=== PATIENT | female | born 1995 | race Caucasian/White ===

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

== ENCOUNTER 2019-02-06 20:05 | Inpatient (IN) | payer BC ==
[~2019-02-06] VITALS: Ht 172.7 cm; Wt 58.0 kg
--- OUTSIDE RECORDS SUMMARY | ~2019-02-06 | XMS | Encounter Summary ---
Demographics + + + | Address | [address] | | | [place] [address] | + + + | Home Phone | | + + + | Preferred Language | Unknown | + + + | Marital Status | | + + + | Orthodoxy Affiliation | 1027 | + + + | Race | Unknown | + + + | Ethnic Group | Unknown | + + + Author + + + | Author | [facility] | | | and [place] | + + + | Organization | [facility] | | | and [place] | + + + | Address | Unknown | + + + | Phone | Unavailable | + + + Support + + +---------+ + | Name | Relationship | Address | Phone | + + +---------+ + | Simeonu Corpus | ECON | Unknown | | + + +---------+ + | Rozina Chang ECON | Unknown | | + + +---------+ + Care Team Providers + +------+ + | Care Mastercam Programmer Name | Role | Phone | + +------+ + | Yousif Sebastian | PCP | | + +------+ + Encounter Details +--------+ + + + + | Date | Type | Department | Care Team | Description | +--------+ + + + + | 03/02/ | Episode | [facility] | Leah Carey | | | 2017 | Changes | GASTROENTEROLOGY | M, RN | | | | | [address] | | | | | | [address] [place] | | | | | | [address] | | | | | | [phone] | | | +--------+ + + + + Social History + +-------+ +--------+------+ | Tobacco Use | Types | Packs/Day | Years | Date | | | | | Used | | + +-------+ +--------+------+ | Never Smoker | | | | | + +-------+ +--------+------+ + +---+---+---+ | Smokeless Tobacco: | | | | | Never Used | | | | + +---+---+---+ + + +---------+ + | Alcohol Use | Drinks/Week | oz/Week | Comments | + + +---------+ + | No | | | | + + +---------+ + + + + | Sex Assigned at | Date Recorded | | | | + + + | Not on file | | + + + + + + + | Job Start Date | Occupation | Industry | + + + + | Not on file | Not on file | Not on file | + + + + + + + + | Travel History | Travel Start | Travel End | + + + + + + | No recent travel history available. | + + documented as of this encounter Plan of Treatment Not on filedocumented as of this encounter Visit Diagnoses Not on filedocumented in this encounter"
--- OUTSIDE RECORDS SUMMARY | ~2019-02-06 | XMS | Encounter Summary ---
Demographics + + + | Address | [address] | | | [place] [address] | + + + | Home Phone | | + + + | Preferred Language | Unknown | + + + | Marital Status | | + + + | Restoration Affiliation | 1027 | + + + | Race | Unknown | + + + | Ethnic Group | Unknown | + + + Author + + + | Author | [facility] | | | and [place] | + + + | Organization | [facility] | | | and [place] | + + + | Address | Unknown | + + + | Phone | Unavailable | + + + Support + + +---------+ + | Name | Relationship | Address | Phone | + + +---------+ + | Simeonu Corpus | ECON | Unknown | | + + +---------+ + | Rozina Bergeron | ECON | Unknown | | + + +---------+ + Care Team Providers + +------+ + | Care Primary Education Professor Name | Role | Phone | + +------+ + | Yousif Sebastian | PCP | | + +------+ + Reason for Visit + + + | Reason | Comments | + + + | Medication Prior | | | Authorization | | + + + Encounter Details +--------+ + + + + | Date | Type | Department | Care Team | Description | +--------+ + + + + | 04/12/ | Telephone | [facility] [place] | [facility], | Medication Prior | | 2019 | | GASTROENTEROLOGY | ABHIJEET Hernandez [address] | Authorization | | | | [address] | [place], [address] | | | | | [address] [place], [place] | [place], [place] | | | | | [address] | [address] | | | | | [phone] | | | +--------+ + + + [...]
--- OUTSIDE RECORDS SUMMARY | ~2019-02-06 | XMS | Encounter Summary ---
Demographics + + + | Address | [address] | | | [place] [address] | + + + | Home Phone | | + + + | Preferred Language | Unknown | + + + | Marital Status | | + + + | Yarsanism Affiliation | 1027 | + + + | Race | Unknown | + + + | Ethnic Group | Unknown | + + + Author + + + | Author | [facility] | | | and [place] | + + + | Organization | [facility] | | | [...] Team Providers + +------+ + | Care Box Maker Name | Role | Phone | + +------+ + | Yousif Sebastian | PCP | | + +------+ + Reason for Visit + + + | Reason | Comments | + + + | Imaging Only | CT | + + + Encounter Details +--------+ + + + + | Date | Type | Department | Care Team | Description | +--------+ + + + + | 03/06/ | Telephone | [facility] | [facility], | Imaging Only (CT) | | 2018 | | GASTROENTEROLOGY | ABHIJEET Hernandez [address] | | | | | [address] | [place], [address] | | | | | [address] [place], [place] | [place], [place] | | | | | [address] | [address] | | | | | [phone] | | | +--------+ + + + [...]
--- OUTSIDE RECORDS SUMMARY | ~2019-02-06 | XMS | Encounter Summary ---
Demographics + + + | Address | [address] | | | [place] [address] | + + + | Home Phone | | + + + | Preferred Language | Unknown | + + + | Marital Status | | + + + | Confucianism Affiliation | 1027 | + + + | Race | Unknown | + + + | Ethnic Group | Unknown | + + + Author + + + | Author | [facility] | | | and [place] | + + + | Organization | [facility] | | | [...] Team Providers + +------+ + | Care Garage Door Service Technician Name | Role | Phone | + +------+ + | Yousif Sebastian | PCP | | + +------+ + Encounter Details +--------+ + + + + | Date | Type | Department | Care Team | Description | +--------+ + + + + | 03/23/ | Abstract | [facility] [place] | Provider, | | | 2019 | | GASTROENTEROLOGY | MD Jerilyn [address] | | | | | [address] [facility] | Silvia Spence | | | | | [address] [place] | [place] [address] | | | | | [address] | | | | | | [phone] | | | +--------+ + + + [...] Not on filedocumented as of this encounter Procedures + +--------+ + + + | Procedure Name | Priori | Date/Time | Associated Diagnosis | Comments | | | ty | | | | + +--------+ + + + | EXTERNAL: | Routin | 03/15/2018 | | Results for this | | COLONOSCOPY | e | | | procedure are in the | | | | | | results section. | + +--------+ + + + documented in this encounter Results EXTERNAL: COLONOSCOPY (03/15/2018) + + + + + + | Component | Value | Ref Range | Performed | Pathologist | | | | | At | Signature | + + + + + + | Colonoscopy | Impression: Redundant | | | | | | colon. Tortuous colon. | | | | | Impression, | The entire examined | | | | | External | colon is normal. | | | | | | Biopsied. The | | | | | | examination was | | | | | | otherwise normal. The | | | | | | distal rectum and anal | | | | | | verge are normal on | | | | | | retroflexion view.~ [facility] | | | | | | Dr. Sanchez | | | | + + + + + + documented in this encounter Visit Diagnoses Not on filedocumented in this encounter"
--- OUTSIDE RECORDS SUMMARY | ~2019-02-06 | XMS | Encounter Summary ---
Demographics + + + | Address | [address] | | | [place] [address] | + + + | Home Phone | | + + + | Preferred Language | Unknown | + + + | Marital Status | | + + + | Gnosticism Affiliation | 1027 | + + + | Race | Unknown | + + + | Ethnic Group | Unknown | + + + Author + + + | Author | [facility] | | | and [place] | + + + | Organization | [facility] | | | and [...] Team Providers + +------+ + | Care Cold Storage Worker Name | Role | Phone | + +------+ + | Yousif Sebastian | PCP | | + +------+ + Reason for Referral Diagnostic/Screening (Routine) +--------+--------+ + + + + | Status | Reason | Specialty | Diagnoses / | Referred By | Referred To | | | | | Procedures | Contact | Contact | +--------+--------+ + + + + | Closed | | Radiology | Diagnoses | | OP GOOD | | | | | Weight | [place], | VALDEZ | | | | | loss, | Mary, | MEDICAL | | | | | unintentiona | [employer] [address] | | | | | l Diarrhea, | [place], [place] | [address] | | | | | unspecified | [address] [place] | [place], [place] | | | | | type | [place], [place] | [address] | | | | | Abdominal | [address] | Phone: | | | | | cramping | Phone: | [phone] | | | | | Procedures | [phone] | Fax: | | | | | CT Abdomen | Fax: | [phone] | | | | | Pelvis w | [phone] | | | | | | Contrast | | | | | | | CHG CT | | | | | | | SCAN,ABDOMEN | | | | | | | T AND | | | | | | | PELVIS,W | | | | | | | CONTRAST | | | +--------+--------+ + + + + Reason for Visit + + + | Reason | Comments | + + + | Abdominal Pain | | + + + Evaluate & Treat (Urgent) +--------+--------+ + + + + | Status | Reason | Specialty | Diagnoses / | Referred By | Referred To | | | | | Procedures | Contact | Contact | +--------+--------+ + + + + | Closed | | Gastroenterol | Diagnoses | [place], | Har[place], | | | | ogy | Lower | Yousif | Soham Stratton MD | | | | | abdominal | RYAN Chin | [address], | | | | | pain, | [address] | [address] | | | | | unspecified | [address] | [place], | | | | | | [place] | [place] [address] | | | | | Noninfective | [address] | Phone: | | | | | | Phone: | [phone] | | | | | gastroenteri | [phone] | Fax: | | | | | tis and | Fax: | [phone] | | | | | colitis, | [phone] | | | | | | unspecified | | | | | | | Abnormal | | | | | | | weight loss | | | | | | | Procedures | | | | | | | OFFICE | | | | | | | VISIT | | | +--------+--------+ + + + + Encounter Details +--------+---------+ + + + | Date | Type | Department | Care Team | Description | +--------+---------+ + + + | 03/02/ | Office | [facility] [place] | [place], | Weight loss, | | 2017 | Visit | GASTROENTEROLOGY | ABHIJEET Hernandez [address] | unintentional | | | | [address] | [place], [address] | (Primary Dx); | | | | [address] [place], [place] | [place], [place] | Diarrhea, | | | | [address] | [address] | unspecified type; | | | | [phone] | | Abdominal pain, | | | | | | unspecified | | | | | | abdominal location | +--------+---------+ + + + Social History + +-------+ [...] + + documented as of this encounter Last Filed Vital Signs + + + + + | Vital Sign | Reading | Time Taken | Comments | + + + + + | Blood Pressure | 100/68 | 03/02/2018 11:07 AM | | | | | PST | | + + + + + | Pulse | 65 | 03/02/2018 11:07 AM | | | | | PST | | + + + + + | Temperature | 37.1 C (98.8 F) | 03/02/2018 11:07 AM | | | | | PST | | + + + + + | Respiratory Rate | 12 | 03/02/2018 11:07 AM | | | | | PST | | + + + + + | Oxygen Saturation | 99% | 03/02/2018 11:07 AM | | | | | PST | | + + + + + | Inhaled Oxygen | - | - | | | Concentration | | | | + + + + + | Weight | 45.5 kg (100 lb 5 | 03/02/2018 11:07 AM | | | | oz) | PST | | + + + + + | Height | 172.7 cm (5' 8") | 03/02/2018 11:07 AM | | | | | PST | | + + + + + | Body Mass Index | 15.25 | 03/02/2018 11:07 AM | | | | | PST | | + + + + + documented in this encounter Progress Notes Mary Ma ARNP - 03/02/2018 11:00 AM PSTFormatting of this note might be differe nt from the original. PATIENT NAME: Nicky Fine : 1995: AGE: 23 y.o. REFERRED BY: Yousif Sebastian PRIMARY CARE: RYAN Sequeira Subjective: CHIEF COMPLAINT: Nicky Fine is a 23 y.o. female referred by RYAN Sequeira for evaluation and treatment of weight loss and diarrhea HISTORY OF PRESENT ILLNESS: Patient notes that she has had stomach issues for about 6-7 years. She reports that she will eat and about 20-30 min later, she will have diarrhea. She can robb ve 2-5 BM per day. Diarrhea comes most days. She states that one day per week, she will have a good day and be able to eat without issue s. [place] and dairy seem to be worse for the pain and diarrhea. Pain is in mid/upper abdomen. She describes pain as intense cramping. Sometimes the intensity is worse. The cramping is co nstant for about 3 hours. It may or may not improve with bowel movement. Increased activity can worsen the pain too. Prior to her , she weighed about 115. She gave 11/2016 and weighed about 121 lbs. She reports that a short time after childbirth and nursing, she dropped to 90 lbs. She had to stop nursing due to weight loss. She feels like she had more constipation with pregna ncy. She admits to eating plenty of foods. Denies eating disorder. LMP was 03/16/2017. She is not using control. She is sexually active. She was tested fo r or spontaneous at [facility]. She reports that HCG levels were negative. She thinks her brother may have psoriasis, but no official autoimmune personal or family hi story. Denies rashes, mouth sores or joint pains. She has had black stools following Pepto Bismol. Denies bright red blood per rectum. She has had nocturnal bowel movements. She reports that she went to [facility] during one of her bad days. She was vomiting that day, which does not happen often. The following day, she had black stools. She was then seen in E D at [facility]. She was given "antacids and a coating medication" that did not help pain. She r eports that the only reason she went to ED was because her in laws highly encouraged her to go. Previous evaluation in medical record indicates stool studies negative for ova and parasite s, negative for Clostridium difficile, negative stool culture, and Hemoccult negative. Sero logy showed normal ESR and sedimentation rate. Lab shows no deficiency and albumin or total protein which could give evidence for chronic malnutrition. MEDICAL, SURGICAL, AND PERSONAL HISTORY: Vitals: 03/02/18 1107 BP: 100/68 Pulse: 65 Resp: 12 Temp: 37.1 C (98.8 F) PainSc: 0 - No pain Allergies Allergen Reactions Sulfa Antibiotics Rash Past Medical History: Diagnosis Date Abdominal cramps Abnormal weight loss Constipation Diarrhea Intestinal malabsorption, unspecified type Low vitamin D level Nausea Past Surgical History: Procedure Laterality Date Arm Surgery Right Family History Problem Relation Age of Onset No Known Problems Mother No Known Problems Father Social History Social History Marital status: Spouse name: N/A Number of children: N/A Years of education: N/A Occupational History Not on file. Social History Main Topics Smoking status: Never Smoker Smokeless tobacco: Never Used Alcohol use No Drug use: Unknown Sexual activity: Not on file Other Topics Concern Not on file Social History Narrative No narrative on file Review of Systems Constitutional: Positive for unexpected weight change. Negative for diaphoresis, fatigue an d fever. HENT: Negative for congestion, hearing loss, mouth sores, rhinorrhea and trouble swallowing . Eyes: Negative for redness and visual disturbance. Respiratory: Negative for cough, choking, chest tightness, shortness of breath and wheezing . Cardiovascular: Negative for chest pain, palpitations and leg swelling. Gastrointestinal: Positive for constipation, diarrhea, nausea and vomiting. Negative for ab dominal distention, abdominal pain, anal bleeding, blood in stool and rectal pain. Endocrine: Denies enlarged thyroid Genitourinary: Negative for dysuria, flank pain and frequency. Musculoskeletal: Negative for arthralgias, back pain and joint swelling. Skin: Negative for color change and rash. Neurological: Negative for seizures, syncope, weakness, numbness and headaches. Hematological: Does not bruise/bleed easily. Denies anemia or enlarged lymph glands. Psychiatric/Behavioral: Negative for dysphoric mood. The patient is not nervous/anxious. Objective: Physical Exam Constitutional: She is oriented to person, place, and time. Patient appears thin. No temporal wasting noted. HENT: Head: Normocephalic and atraumatic. Eyes: EOM are normal. No scleral icterus. Neck: Normal range of motion. Neck supple. Cardiovascular: Normal rate, regular rhythm and normal heart sounds. Pulmonary/Chest: Effort normal and breath sounds normal. No respiratory distress. She has n o wheezes. Abdominal: Soft. Normal appearance and bowel sounds are normal. She exhibits no ascites and no mass. There is no splenomegaly or hepatomegaly. There is no tenderness. There is no rigi dity, no rebound, no guarding and negative Davis's sign. Musculoskeletal: Normal range of motion. She exhibits no edema or deformity. Neurological: She is alert and oriented to person, place, and time. Skin: Skin is warm and dry. No rash noted. Psychiatric: She has a normal mood and affect. Her behavior is normal. Nursing note and vitals reviewed. No visits with results within 1 Month(s) from this visit. Latest known visit with results is: No results found for any previous visit. Assessment: 1. Weight loss, unintentional CT Abdomen Pelvis w Contrast Case request: egd/colonoscopy; N/A 2. Diarrhea, unspecified type CT Abdomen Pelvis w Contrast Case request: egd/colonoscopy; N/A 3. Abdominal pain, unspecified abdominal location CT Abdomen Pelvis w Contrast Case request: egd/colonoscopy; N/A Plan: Patient to have EGD and colonoscopy for further evaluation. The procedural techniques, risk s, indications, and alternatives were discussed. Among the risks, are perforation, bleeding , infection, allergic/adverse reactions to medications, and cardiovascular complications. E ach of these could result in hospitalization, additional procedures (including surgery), or other life threatening complications. Patient verbalized understanding. Risk factors to col o-rectal cancer discussed with patient including smoking, obesity, excessive red meat ingest ion, advancing age and first degree family relative with history of colo-rectal cancer discu ssed with patient. Patient to call with any questions or concerns prior to procedure. Due to significant weight loss, also ordering CT abdomen/pelvis to rule out small bowel [employer] hn's disease. Patient given a prescription for Bentyl to help with abdominal pain. She is advised to actively prevent at this time. She verbalizes understanding. Will follow up with results. Patient is to call with any question or concerns. Any fevers, chills, chest pain, SOB or other serious symptoms patient is to call the office or go to ER . Cc: RYAN Sequeira This note was dictated using voice recognition software. Please contact me if there are an y questions regarding its content. documented in t his encounter Plan of Treatment + +---------+--------+ + + | Name | Type | Priori | Associated Diagnoses | Order Schedule | | | | ty | | | + +---------+--------+ + + | CT Abdomen Pelvis w | Imaging | Routin | Weight loss, | Expected: | | Contrast | | e | unintentional | 03/02/2018, Expires: | | | | | Diarrhea, | 06/30/2018 | | | | | unspecified type | | | | | | Abdominal pain, | | | | | | unspecified | | | | | | abdominal location | | + +---------+--------+ + + documented as of this encounter Visit Diagnoses + + | Diagnosis | + + | Weight loss, unintentional - Primary Loss of weight | + + | Diarrhea, unspecified type | + + | Abdominal pain, unspecified abdominal location | + + documented in this encounter
--- OUTSIDE RECORDS SUMMARY | ~2019-02-06 | XMS | Clinical Summary ---
Demographics + + + | Address | [address] | | | [place] [address] | + + + | Home Phone | | + + + | Preferred Language | Unknown | + + + | Marital Status | | + + + | Shinto Affiliation | Unknown | + + + | Race | Unknown | + + + | Ethnic Group | Unknown | + + + Author + + + | Author | [facility] (Historical as of | | | 10-28-18) | + + + | Organization | [facility] (Historical as of | | | 10-28-18) | + + + | Address | Unknown | + + + | Phone | Unavailable | + + + Support + + +---------+ + | Name | Relationship | Address | Phone | + + +---------+ + | Shyann Howard | ECON | Unknown | | + + +---------+ + Care Team Providers + +------+ + | Care Licensed Prosthetist Name | Role | Phone | + +------+ + PP | Unavailable | + +------+ + Allergies No Known Allergies Current Medications + + +--------+---------+------+------+-------+ | Prescription | Sig. | Disp. | Refills | Star | End | Statu | | | | | | t | Date | s | | | | | | Date | | | + + +--------+---------+------+------+-------+ | sucralfate | Take 1 tablet by | 60 | 0 | 11/0 | | Activ | | (CARAFATE) 1 g | mouth 4 (four) times | tablet | | 4/20 | | e | | tablet | daily for 15 days. | | | 18 | | | + + +--------+---------+------+------+-------+ Active Problems Not on file Social History + +-------+ +--------+------+ | Tobacco [...] + +---------+ + | Alcohol Use | Drinks/We | oz/Week | Comments | | | ek | | | + + +---------+ + | No | | | | + + +---------+ + + + + | Sex Assigned at | Date Recorded | | | | + + + | Not on file | | + + + Last Filed Vital Signs + + + + | Vital Sign | Reading | Time Taken | + + + + | Blood Pressure | 100/66 | 01/16/2018 12:11 AM PST | + + + + | Pulse | 86 | 01/16/2018 12:11 AM PST | + + + + | Temperature | 36.4 C (97.6 F) | 01/15/2018 7:56 PM PST | + + + + | Respiratory Rate | 17 | 01/15/2018 9:27 PM PST | + + + + | Oxygen Saturation | 97% | 01/16/2018 12:11 AM PST | + + + + | Inhaled Oxygen | - | - | | Concentration | | | + + + + | Weight | 47.8 kg (105 lb 6.1 | 01/15/2018 7:56 PM PST | | | oz) | | + + + + | Height | - | - | + + + + | Body Mass Index | - | - | + + + + Plan of Treatment Not on file Results Not on filefrom Last 3 Months Insurance +---------+--------+ +------+-------+ + | Payer | Benefi | Subscriber | Type | Phone | Address | | | t Plan | ID | | | | | | / | | | | | | | Group | | | | | +---------+--------+ +------+-------+ + | PREMERA | PREMER | [id number] | | | [address] [address] | | | A BLUE | 1 | | | [place] | | | CARD | | | | [phone] | +---------+--------+ +------+-------+ + + +--------+ +--------+ + + | Guarantor Name | [employer]oun | Relation to | Date | Phone | Billing Address | | | t Type | Patient | of | | | | | | | | | | + +--------+ +--------+ + + | MELITA SONG | Person | Self [birth year] | Home: | [address] | | | al/Fam | | 1994 | [phone] [place] [address] | | | maura | | | [address] | | + +--------+ +--------+ + +"
--- OUTSIDE RECORDS SUMMARY | ~2019-02-06 | XMS | Encounter Summary ---
Demographics + + + | Address | [address] | | | [place] [address] | + + + | Home Phone | | + + + | Preferred Language | Unknown | + + + | Marital Status | | + + + | Cheondoism Affiliation | [id number] | + + + | Race | Unknown | + + + | Ethnic Group | Unknown | + + + Author + + + | Author | [facility] | | | and [place] | + + + | Organization | [facility] | | | [...] Team Providers + +------+ + | Care Telecom Specialist Name | Role | Phone | + +------+ + | Yousif Sebastian | PCP | | + +------+ + Encounter Details +--------+ + + + + | Date | Type | Department | Care Team | Description | +--------+ + + + + | 04/13/ | Imaging | [facility] | Provider, | | | 2019 | Exam | [facility] | [address] | | | | | IMAGING | [address] | | | | | [phone] | [place] [id number] | | +--------+ + + + + [...] | + +--------+ + + + | CT ABDOMEN PELVIS W | Routin | 04/03/2018 | | Results for this | | CONTRAST | e | 9:20 AM | | procedure are in the | | | | PST | | results section. | + +--------+ + + + documented in this encounter Results CT Abdomen Pelvis w Contrast (04/03/2018 9:20 AM PST) + + | Specimen | + + | | + + + + + | Narrative | Performed At | + + + | External films for comparison only | [facility] | | | | | No results will be in the chart. | | + + + + +---------+ + + | Performing | Address | City/State/Zipcode | Phone Number | | Organization | | | | + +---------+ + + | [facility] | | | | + +---------+ + + documented in this encounter Visit Diagnoses Not on filedocumented in this encounter"
--- OUTSIDE RECORDS SUMMARY | ~2019-02-06 | XMS | Encounter Summary ---
Demographics + + + | Address | [address] | | | [place] [address] | + + + | Home Phone | | + + + | Preferred Language | Unknown | + + + | Marital Status | | + + + | Islam Affiliation | 1027 | + + + | Race | Unknown | + + + | Ethnic Group | Unknown | + + + Author + + + | Author | [facility] | | | and [place] | + + + | Organization | [facility] | | | [...] Team Providers + +------+ + | Care Compliance Review Officer Name | Role | Phone | + +------+ + | Yousif Sebastian | PCP | | + +------+ + Reason for Visit Auth/Cert +--------+--------+ + + + + | Status | Reason | Specialty | Diagnoses / | Referred By | Referred To | | | | | Procedures | Contact | Contact | +--------+--------+ + + + + | | | | Diagnoses | | | | | | | Weight | | | | | | | loss, | | | | | | | unintentiona | | | | | | | l (R63.4), | | | | | | | Diarrhea, | | | | | | | unspecified | | | | | | | type | | | | | | | (R19.7), | | | | | | | Abdominal | | | | | | | cramping | | | | | | | (R10.9) | | | | | | | Procedures | | | | | | | ID | | | | | | | ESOPHAGOGAST | | | | | | | RODUODENOSCO | | | | | | | PY TRANSORAL | | | | | | | DIAGNOSTIC | | | | | | | ID EGD | | | | | | | TRANSORAL | | | | | | | BIOPSY | | | | | | | SINGLE/MULTI | | | | | | | PLE ID | | | | | | | COLONOSCOPY | | | | | | | FLX DX | | | | | | | W/COLLJ SPEC | | | | | | | WHEN PFRMD | | | | | | | ID | | | | | | | COLONOSCOPY | | | | | | | W/BIOPSY | | | | | | | SINGLE/MULTI | | | | | | | PLE ID | | | | | | | COLSC FLX | | | | | | | W/RMVL OF | | | | | | | TUMOR POLYP | | | | | | | LESION SNARE | | | | | | | TQ EGD | | | | | | | COLONOSCOPY | | | +--------+--------+ + + + + Encounter Details +--------+ + + + + | Date | Type | Department | Care Team | Description | +--------+ + + + + | 03/15/ | Hospital | [facility] | Soham Sanchez MD | Abnormal weight loss | | 2019 | Encounter | [facility] | [address], [place] | (Primary Dx); | | | | [address] | [address] [place], [place] | Chronic diarrhea | | | | [place], [place] | [address] | | | | | [address] | | | | | | [phone] | | | +--------+ + + + [...] + + + | Blood Pressure | 106/64 | 03/15/2018 12:15 PM | | | | | PST | | + + + + + | Pulse | 80 | 03/15/2018 12:30 PM | | | | | PST | | + + + + + | Temperature | 36.6 C (97.9 F) | 03/15/2018 9:42 AM | | | | | PST | | + + + + + | Respiratory Rate | 14 | 03/15/2018 12:15 PM | | | | | PST | | + + + + + | Oxygen Saturation | 98% | 03/15/2018 12:30 PM | | | | | PST | | + + + + + | Inhaled Oxygen | - | - | | | Concentration | | | | + + + + + | Weight | 47 kg (103 lb 9.9 | 03/15/2018 9:39 AM | | | | oz) | PST | | + + + + + | Height | 172.7 cm (5' 8") | 03/15/2018 9:42 AM | | | | | PST | | + + + + + | Body Mass Index | 15.75 | 03/15/2018 9:39 AM | | | | | PST | | + + + + + documented in this encounter Medications at Time of Discharge + + + +---------+ + + | Medication | Sig | Dispensed | Refills | Start | End Date | | | | | | Date | | + + + +---------+ + + | cholecalciferol | Take 5,000 Units by | | 0 | 01/25/20 | | | (CHOLECALCIFEROL) | mouth Daily. | | | 18 | | | 5000 units CAPS | | | | | | + + + +---------+ + + | dicyclomine | Take 1 capsule by | 120 | 0 | 03/02/20 | | | (BENTYL) 10 mg | mouth 4 times daily | capsule | | 18 | | | capsule | (before meals and | | | | | | | nightly). | | | | | + + + +---------+ + + | Vit-Fe | Take 1 tablet by | | 0 | | | | Fumarate-FA | mouth Daily. | | | | | | ( PO) | | | | | | + + + +---------+ + + | sucralfate | Take 1 g by mouth. | | 0 | 01/16/20 | | | (CARAFATE) 1 g | | | | 18 | 9 | | tablet | | | | | | + + + +---------+ + + documented as of this encounter Plan of Treatment Not on filedocumented as of this encounter Procedures + +--------+ + + + | Procedure Name | Priori | Date/Time | Associated Diagnosis | Comments | | | ty | | | | + +--------+ + + + | LACTOFERRIN, FECAL, | Routin | 03/15/2018 | | Results for this | | QUAL | e | 10:26 AM | | procedure are in the | | | | PST | | results section. | + +--------+ + + + | CAMPYLOBACTER | Routin | 03/15/2018 | | Results for this | | AG,QUAL | e | 10:25 AM | | procedure are in the | | | | PST | | results section. | + +--------+ + + + | CULTURE, STOOL | Routin | 03/15/2018 | | Results for this | | RESULT | e | 10:25 AM | | procedure are in the | | | | PST | | results section. | + +--------+ + + + | RESULT | Routin | 03/15/2018 | | Results for this | | (NON-ORD)[facility] | e | 10:25 AM | | procedure are in the | | | | PST | | results section. | + +--------+ + + + | SHIGATOXIN 1 AND 2 | Routin | 03/15/2018 | | Results for this | | | e | 10:25 AM | | procedure are in the | | | | PST | | results section. | + +--------+ + + + | OVA AND PARASITE | Routin | 03/15/2018 | | Results for this | | EXAMINATION | e | 10:25 AM | | procedure are in the | | | | PST | | results section. | + +--------+ + + + | CRYPTOSPORIDIUM AG | Routin | 03/15/2018 | | Results for this | | | e | 10:25 AM | | procedure are in the | | | | PST | | results section. | + +--------+ + + + | GIARDIA AG, EIA, | Routin | 03/15/2018 | | Results for this | | STOOL | e | 10:25 AM | | procedure are in the | | | | PST | | results section. | + +--------+ + + + | CLOSTRIDIUM | Routin | 03/15/2018 | | Results for this | | DIFFICILE A AND B | e | 10:25 AM | | procedure are in the | | EIA | | PST | | results section. | + +--------+ + + + | CULTURE, STOOL | Routin | 03/15/2018 | | Results for this | | | e | 10:25 AM | | procedure are in the | | | | PST | | results section. | + +--------+ + + + | HELICOBACTER PYLORI | Routin | 03/15/2018 | | Results for this | | BIOPSY | e | 10:20 AM | | procedure are in the | | | | PST | | results section. | + +--------+ + + + | COLONOSCOPY | | 03/15/2018 | Weight loss, | | | | | 10:04 AM | unintentional | | | | | PST | (R63.4), Diarrhea, | | | | | | unspecified type | | | | | | (R19.7), Abdominal | | | | | | cramping (R10.9) | | + +--------+ + + + | EGD | | 03/15/2018 | Weight loss, | | | | | 10:04 AM | unintentional | | | | | PST | (R63.4), Diarrhea, | | | | | | unspecified type | | | | | | (R19.7), Abdominal | | | | | | cramping (R10.9) | | + +--------+ + + + | EGD | Routin | 03/15/2018 | | Results for this | | | e | 9:42 AM | | procedure are in the | | | | PST | | results section. | + +--------+ + + + | COLONOSCOPY | Routin | 03/15/2018 | | Results for this | | | e | 9:40 AM | | procedure are in the | | | | PST | | results section. | + +--------+ + + + | POCT TEST, | Routin | 03/15/2018 | | Results for this | | URINE, QUAL | e | 9:23 AM | | procedure are in the | | | | PST | | results section. | + +--------+ + + + | SURGICAL PATHOLOGY | Routin | 03/15/2018 | | Results for this | | EXAM | e | 12:00 AM | | procedure are in the | | | | PST | | results section. | + +--------+ + + + documented in this encounter Results Lactoferrin, Fecal, Qual (03/15/2018 10:26 AM PST) + + + + + + | Component | Value | Ref Range | Performed | Pathologist | | | | | At | Signature | + + + + + + | Lactoferrin | Positive (A) | Negative | [facility] | | | , Qual | | [facility] | | | | | [facility] | | | | | | CENTER - | | | | | | LABORATORY | | + + + + + + + + | Specimen | + + | Stool - Stool | | specimen (specimen) | + + + + + + + | Performing | Address | City/State/Zipcode | Phone Number | | Organization | | | | + + + + + | [facility] | [address] | [place] | [phone] | | [facility] | | [address] | | | - LABORATORY | | | | + + + + + RESULT REFLEX (03/15/2018 10:25 AM PST) + + + + + + | Component | Value | Ref Range | Performed | Pathologist | | | | | At | Signature | + + + + + + | Result | Comment (A)Comment: | | [facility] | | | | Blastocystis hominis | | LAB [facility] | | | | organisms presentFew | | - [facility] | | | | seen | | | | + + + + + + + + | Specimen | + + | Stool - Stool | | specimen (specimen) | + + + + + | Narrative | Performed At | + + + | Performed at: 01 - [facility] [address], | REFERENCE LAB | | [place] [id number] Grounds Caretaker: Juan Carlos Wolff MD, Phone: | [facility] | | [phone] | | + + + + + + + + | Performing | Address | City/State/Zipcode | Phone Number | | Organization | | | | + + + + + | REFERENCE LAB | [address] | [place] [address] | [phone] | | [facility] | [address] | | | + + + + + Campylobacter Ag,Qual (03/15/2018 10:25 AM PST) + + + + + + | Component | Value | Ref Range | Performed | Pathologist | | | | | At | Signature | + + + + + + | Campylobact | Negative | Negative | [facility] | | | er AG, Qual | | | [facility] | | | | | | MEDICAL | | | | | | CENTER - | | | | | | LABORATORY | | + + + + + + + + | Specimen | + + | Stool - Stool | | specimen (specimen) | + + + + + + + | Performing | Address | City/State/Zipcode | Phone Number | | Organization | | | | + + + + + | [facility] | [address] | [place] | [phone] | | [facility] | | [address] | | | - LABORATORY | | | | + + + + + Culture, Stool Result (03/15/2018 10:25 AM PST) + + + + + + | Component | Value | Ref Range | Performed | Pathologist | | | | | At | Signature | + + + + + + | Culture | No Salmonella, Shigella, | | [facility] | | | | Aeromonas, Plesiomonas, | | [facility] | | | | E. coli O157 or | | MEDICAL | | | | Yersinia isolated. | | CENTER - | | | | | | LABORATORY | | + + + + + + | Culture | 4+ Usual FloraComment: | | [facility] | | | | Consistent with usual | | [facility] | | | | enteric monica. | | MEDICAL | | | | | | CENTER - | | | | | | LABORATORY | | + + + + + + + + | Specimen | + + | Stool - Stool | | specimen (specimen) | + + + + + + + | Performing | Address | City/State/Zipcode | Phone Number | | Organization | | | | + + + + + | [facility] | [address] | [place] | [phone] | | [facility] | | [address] | | | - LABORATORY | | | | + + + + + Shigatoxin 1 and 2 (03/15/2018 10:25 AM PST) + + + + + + | Component | Value | Ref Range | Performed | Pathologist | | | | | At | Signature | + + + + + + | Shigatoxin | Negative | Negative | [facility] | | | 1 | | | [facility] | | | | | | MEDICAL | | | | | | CENTER - | | | | | | LABORATORY | | + + + + + + | Shigatoxin | Negative | Negative | [facility] | | | 2 | | | [facility] | | | | | | MEDICAL | | | | | | CENTER - | | | | | | LABORATORY | | + + + + + + + + | Specimen | + + | Stool - Stool | | specimen (specimen) | + + + + + + + | Performing | Address | City/State/Zipcode | Phone Number | | Organization | | | | + + + + + | [facility] | [address] | [place] | [phone] | | [facility] | | [address] | | | - LABORATORY | | | | + + + + + Ova and Parasite Examination (03/15/2018 10:25 AM PST) + + + + + + | Component | Value | Ref Range | Performed | Pathologist | | | | | At | Signature | + + + + + + | Ova + | Final report (A)Comment: | | REFERENCE | | | Parasite | These results were | | LAB [facility] | | | Exam | obtained using wet | | - [facility] | | | | preparation(s) and | | | | | | trichromestained smear. | | | | | | This test does not | | | | | | include testing for | | | | | | Cryptosporidiumparvum, | | | | | | Cyclospora, or | | | | | | Microsporidia. | | | | + + + + + + + + | Specimen | + + | Stool - Stool | | specimen (specimen) | + + + + + | Narrative | Performed At | + + + | Performed at: [facility] - [facility] [address], | REFERENCE LAB | | [place], [place] [id number] Grounds Caretaker: Juan Carlos Wolff MD, Phone: | [facility] | | [phone] | | + + + + + + + + | Performing | Address | City/State/Zipcode | Phone Number | | Organization | | | | + + + + + | REFERENCE LAB | [address] | [place] [address] | [phone] | | [facility] | [address] | | | + + + + + Giardia Ag, EIA, Stool (03/15/2018 10:25 AM PST) + + + + + + | Component | Value | Ref Range | Performed | Pathologist | | | | | At | Signature | + + + + + + | Giardia | Negative | Negative | [facility] | | | Antigen, | | | [facility] | | | Stool | | | MEDICAL | | | | | | CENTER - | | | | | | LABORATORY | | + + + + + + + + | Specimen | + + | Stool - Stool | | specimen (specimen) | + + + + + + + | Performing | Address | City/State/Zipcode | Phone Number | | Organization | | | | + + + + + | [facility] | [address] | [place] | [phone] | | [facility] | | [address] | | | - LABORATORY | | | | + + + + + Cryptosporidium Ag (03/15/2018 10:25 AM PST) + + + + + + | Component | Value | Ref Range | Performed | Pathologist | | | | | At | Signature | + + + + + + | Cryptospori | Negative | Negative | [facility] | | | dium | | | [facility] | | | Antigen | | | MEDICAL | | | | | | CENTER - | | | | | | LABORATORY | | + + + + + + + + | Specimen | + + | Stool - Stool | | specimen (specimen) | + + + + + + + | Performing | Address | City/State/Zipcode | Phone Number | | Organization | | | | + + + + + | [facility] | [address] | [place] | [phone] | | [facility] | | [address] | | | - LABORATORY | | | | + + + + + Clostridium difficile A and B EIA (03/15/2018 10:25 AM PST) + + + + + + | Component | Value | Ref Range | Performed | Pathologist | | | | | At | Signature | + + + + + + | Clostridium | NegativeComment: | Negative | [facility] | | | Difficile | Negative for toxigenic | | [facility] | | | [facility] Antigen | Clostridium difficile | | MEDICAL | | | | | | CENTER - | | | | | | LABORATORY | | + + + + + + | C. Diff | NegativeComment: No data | Negative | [facility] | | | Toxin A/B | exists on the effects | | [facility] | | | EIA | of colonic washes, | | MEDICAL | | | | barium enemas, | | CENTER - | | | | laxatives, or bowel | | LABORATORY | | | | preparations on the | | | | | | performance of this | | | | | | test. All of these | | | | | | procedures can result in | | | | | | extensive dilution or | | | | | | the presence of | | | | | | additives that may | | | | | | affect test performance. | | | | + + + + + + + + | Specimen | + + | Stool - Stool | | specimen (specimen) | + + + + + + + | Performing | Address | City/State/Zipcode | Phone Number | | Organization | | | | + + + + + | [facility] | [address] | [place] | [phone] | | [facility] | | [address] | | | - LABORATORY | | | | + + + + + Helicobactor pylori Biopsy (03/15/2018 10:20 AM PST) + + + + + + | Component | Value | Ref Range | Performed | Pathologist | | | | | At | Signature | + + + + + + | Helicobacte | Negative | Negative | [facility] | | | r pylori Ag | | | [facility] | | | | | | MEDICAL | | | | | | CENTER - | | | | | | LABORATORY | | + + + + + + + + | Specimen | + + | Tissue - Specimen | | from stomach | | (specimen) | + + + + + + + | Performing | Address | City/State/Zipcode | Phone Number | | Organization | | | | + + + + + | [facility] | [address] | [place] | [phone] | | [facility] | | [address] | | | - LABORATORY | | | | + + + + + EGD (03/15/2018 9:42 AM PST) + + | Specimen | + + | | + + + + -+ | Narrative | Performed At | + + -+ | | [facility] | | GastroenterologyPatient Name: Nicky FineProcedure Date: 03/15/2018 | [facility] | | 9:42 AMMRN: [id number] #: [id number] of : | | | 1995Admit Type: AmbulatoryAge: 23Room: [facility] 01Gender: | | | FemaleNote Status: FinalizedAttending MD: Soham Sanchez , | | | MDProcedure: Upper GI endoscopyIndications: | | | Diarrhea, Weight lossProviders: Soham Sanchez MD, | | | Lisa Grace RN, Hnanah Arguello, | | | RN, Myah Hill, TechnicianReferring MD: Yousif Chin | | | Jaz (Referring MD)Medicines: Midazolam 5 mg IV, | | | Meperidine 100 mg IV, Benzocaine spray, | | | Oxygen 4 liters/min nasocannulaComplications: No immediate | | | complications. Estimated blood loss: Minimal.Procedure: | | | Pre-Anesthesia Assessment: - Prior to the procedure, a History | | | and Physical was performed, and patient medications, allergies | | | and sensitivities were reviewed. The patient's tolerance of | | | previous anesthesia was reviewed. - Prior to the procedure, a | | | History and Physical was performed, and patient medications and | | | allergies were reviewed. The patient is competent. The risks | | | and benefits of the procedure and the sedation options and | | | risks were discussed with the patient. All questions were | | | answered and informed consent was obtained. Patient identification and | | | proposed procedure were verified by the physician, the nurse | | | and the utility locate technician in the endoscopy suite. Mental Status | | | Examination: alert and oriented. Airway Examination: normal | | | oropharyngeal airway and neck mobility and Mallampati Class I | | | (tonsillar pillars visualized). Respiratory Examination: clear | | | to auscultation. CV Examination: normal. Prophylactic | | | Antibiotics: The patient does not require prophylactic | | | antibiotics. Prior Anticoagulants: The patient has taken no previous | | | anticoagulant or antiplatelet agents. ASA Grade Assessment: II - | | | A patient with mild systemic disease. After reviewing the | | | risks and benefits, the patient was deemed in satisfactory | | | condition to undergo the procedure. The anesthesia plan was to | | | use moderate sedation / analgesia (conscious sedation). | | | Immediately prior to administration of medications, the patient | | | was re-assessed for adequacy to receive sedatives. The heart | | | rate, respiratory rate, oxygen saturations, blood pressure, | | | adequacy of pulmonary ventilation, and response to care were | | | monitored throughout the procedure. The physical status of the patient | | | was re-assessed after the procedure. - After reviewing | | | the risks and benefits, the patient was deemed in satisfactory | | | condition to undergo the procedure. - Immediately prior to | | | administration of medications, the patient was re-assessed for | | | adequacy to receive sedatives. - The heart rate, respiratory | | | rate, oxygen saturations, blood pressure, adequacy of pulmonary | | | ventilation, and response to care were monitored throughout | | | the procedure. - The physical status of the patient was | | | re-assessed after the procedure. After obtaining informed | | | consent, the endoscope was passed under direct vision. | | | Throughout the procedure, the patient's blood pressure, pulse, | | | and oxygen saturations were monitored continuously. The Endoscope was | | | introduced through the mouth, and advanced to the third part of | | | duodenum. The upper GI endoscopy was accomplished without | | | difficulty. The patient tolerated the procedure well.Findings: | | | The cricopharyngeus, upper third of the esophagus, middle third | | | of the esophagus and lower third of the esophagus were normal. | | | The Z-line was regular and was found 40 cm from the incisors. | | | A normal lower esophageal sphincter was found. Suspect | | | gastroparesis due to absence of peristalsis. Biopsies were taken | | | with a cold forceps for Helicobacter pylori testing using CLOtest. | | | Verification of patient identification for the specimen was | | | done. Estimated blood loss was minimal. The duodenal | | | bulb, first portion of the duodenum, second portion of the | | | duodenum, area of the papilla and third portion of the duodenum were | | | normal. There is a sharp angulation of the duodenal lumen in the | | | second portion of the duodenum The retroflexed view | | | confirmed previous findings,Impression: - Normal | | | cricopharyngeus, upper third of esophagus, middle third of | | | esophagus and lower third of esophagus. - Z-line regular, 40 cm | | | from the incisors. - Normal lower esophageal sphincter. - | | | Gastroparesis. Biopsied. - Normal duodenal bulb, first portion | | | of the duodenum, second portion of the duodenum, area of the | | | papilla and third portion of the duodenum. - The retroflexed | | | view confirmed previous findings,Recommendation: - Patient has a | | | contact number available for emergencies. The signs and | | | symptoms of potential delayed complications were discussed with the | | | patient. Return to normal activities tomorrow. Written discharge | | | instructions were provided to the patient. - Discharge | | | patient to home (ambulatory). - Resume previous diet today. | | | - Perform a colonoscopy today.Soham Sanchez MD03/15/2018 10:59:31 | | | AMThis report has been signed electronically.Number of Addenda: 0Note | | | Initiated On: 03/15/2018 9:42 AMTotal Procedure Duration: 0 hours 6 | | | minutes 10 seconds Scope In: 10:13:09 AMScope Out: 10:19:19 AM | | | [facility], [address] [place] [address] | | | [id number] | | | symptoms of potential delayed complications were discussed with the | | | patient. Return to normal activities tomorrow. Written discharge | | | instructions were provided to the patient. | | | - Discharge patient to home (ambulatory). | | | - Resume previous diet today. | | | - Perform a colonoscopy today. | | |Soham Sanchez MD | | |03/15/2018 10:59:31 AM | | |This report has been signed electronically. | | |Number of Addenda: 0 | | |Note Initiated On: 03/15/2018 9:42 AM | | |Total Procedure Duration: 0 hours 6 minutes 10 seconds | | |Scope In: 10:13:09 AM | | |Scope Out: 10:19:19 AM | | | [facility], [address] [place] [address] | | | [address] | | + + -+ + +---------+ + + | Performing | Address | City/State/Zipcode | Phone Number | | Organization | | | | + +---------+ + + | [facility] | | | | + +---------+ + + COLONOSCOPY (03/15/2018 9:40 AM PST) + + | Specimen | + + | | + + + + -+ | Narrative | Performed At | + + -+ | | [facility] | | GastroenterologyPatient Name: Nicky FineSarina Date: 03/15/2018 | [place] | | 9:40 AMMRN: [id number] #: [id number] of : | | | 1995Admit Type: AmbulatoryAge: 23Room: [facility] 01Gender: | | | FemaleNote Status: FinalizedAttending MD: Soham Sanchez , | | | MDProcedure: ColonoscopyIndications: Weight | | | lossProviders: Soham Sanchez MD, Lisa Grace, | | | RN, Hannah Arguello RN, Myah Hill, | | | TechnicianReferring MD: Yousif Sebastian (Referring | | | MD)Medicines: Midazolam 5 mg IV, Meperidine 100 mg IV, | | | Oxygen 4 liters/min | | | nasocannulaComplications: No immediate complications. Estimated | | | blood loss: Minimal.Procedure: Pre-Anesthesia Assessment: | | | - Prior to the procedure, a History and Physical was performed, and | | | patient medications, allergies and sensitivities were reviewed. | | | The patient's tolerance of previous anesthesia was reviewed. | | | - Prior to the procedure, a History and Physical was performed, | | | and patient medications and allergies were reviewed. The | | | patient is competent. The risks and benefits of the procedure | | | and the sedation options and risks were discussed with the | | | patient. All questions were answered and informed consent was | | | obtained. Patient identification and proposed procedure were | | | verified. Prophylactic Antibiotics: The patient does not | | | require prophylactic antibiotics. Prior Anticoagulants: The | | | patient has taken no previous anticoagulant or antiplatelet agents. | | | ASA Grade Assessment: II - A patient with mild systemic | | | disease. After reviewing the risks and benefits, the patient | | | was deemed in satisfactory condition to undergo the procedure. | | | The anesthesia plan was to use moderate sedation / analgesia | | | (conscious sedation). Immediately prior to administration of | | | medications, the patient was re-assessed for adequacy to | | | receive sedatives. The heart rate, respiratory rate, oxygen | | | saturations, blood pressure, adequacy of pulmonary ventilation, and | | | response to care were monitored throughout the procedure. The | | | physical status of the patient was re-assessed after the | | | procedure. - After reviewing the risks and benefits, the patient | | | was deemed in satisfactory condition to undergo the procedure. | | | - Immediately prior to administration of medications, the | | | patient was re-assessed for adequacy to receive sedatives. | | | - The heart rate, respiratory rate, oxygen saturations, blood | | | pressure, adequacy of pulmonary ventilation, and response to | | | care were monitored throughout the procedure. - The | | | physical status of the patient was re-assessed after the procedure. | | | After I obtained informed consent, the scope was passed under | | | direct vision. Throughout the procedure, the patient's blood | | | pressure, pulse, and oxygen saturations were monitored | | | continuously. The Colonoscope was introduced through the anus | | | and advanced to the cecum, identified by the appendiceal | | | orifice, ileocecal valve and palpation. The colonoscopy was | | | extremely difficult due to a redundant colon, a tortuous colon and the | | | patient's body habitus. Successful completion of the procedure | | | was aided by using manual pressure, straightening and | | | shortening the scope to obtain bowel loop reduction and using | | | scope torsion. The patient tolerated the procedure well. The | | | quality of the bowel preparation was excellent.Findings: | | | The perianal and digital rectal examinations were normal. Pertinent | | | negatives include normal sphincter tone and no palpable rectal | | | lesions. The colon (entire examined portion) was grossly | | | redundant. Advancing the scope required using manual pressure, | | | straightening and shortening the scope to obtain bowel loop | | | reduction and using scope torsion. The descending colon, splenic | | | flexure and hepatic flexure were significantly tortuous. | | | The colon (entire examined portion) appeared normal. Biopsies for | | | histology were taken with a cold forceps from the ascending colon, | | | descending colon and sigmoid colon for evaluation of | | | microscopic colitis. Verification of patient identification for | | | the specimen was done. Estimated blood loss was minimal. | | | The exam was otherwise without abnormality. The retroflexed | | | view of the distal rectum and anal verge was normal and showed | | | no anal or rectal abnormalities.Impression: - Redundant colon. | | | - Tortuous colon. - The entire examined colon is normal. | | | Biopsied. - The examination was otherwise normal. - The | | | distal rectum and anal verge are normal on retroflexion | | | view.Recommendation: - Patient has a contact number available | | | for emergencies. The signs and symptoms of potential delayed | | | complications were discussed with the patient. Return to normal | | | activities tomorrow. Written discharge instructions were | | | provided to the patient. - Discharge patient to home | | | (ambulatory). - Resume previous diet today. - Continue | | | present medications. - Return to nurse practitioner at | | | appointment to be scheduled. - Telephone GI clinic for pathology | | | results in 1 week.Soham Sanchez MD03/15/2018 11:03:16 AMThis report | | | has been signed electronically.Number of Addenda: 0Note Initiated On: | | | 03/15/2018 9:40 AMScope Withdrawal Time: 0 hours 6 minutes 43 seconds | | | Total Procedure Duration: 0 hours 24 minutes 39 seconds Scope In: | | | 10:21:20 AMScope Out: 10:45:59 AM [facility] | | | [place], [address] [place] [address] | | | instructions were provided to the patient. | | | - Discharge patient to home (ambulatory). | | | - Resume previous diet today. | | | - Continue present medications. | | | - Return to nurse practitioner at appointment to be scheduled. | | | - Telephone GI clinic for pathology results in 1 week. | | |Soham Sanchez MD | | |03/15/2018 11:03:16 AM | | |This report has been signed electronically. | | |Number of Addenda: 0 | | |Note Initiated On: 03/15/2018 9:40 AM | | |Scope Withdrawal Time: 0 hours 6 minutes 43 seconds | | |Total Procedure Duration: 0 hours 24 minutes 39 seconds | | |Scope In: 10:21:20 AM | | |Scope Out: 10:45:59 AM | | | [facility], [address] [place] [address] | | | [id number] | | + + -+ + +---------+ + + | Performing | Address | City/State/Zipcode | Phone Number | | Organization | | | | + +---------+ + + | [facility] | | | | + +---------+ + + POCT Test, Urine, QUAL (03/15/2018 9:23 AM PST) + + + + + + | Component | Value | Ref Range | Performed | Pathologist | | | | | At | Signature | + + + + + + | | Negative | Negative | [facility] | | | Test, | | | [facility] | | | Urine, POC | | | CORE | | | | | | LABORATORY | | + + + + + + | Internal QC | Acceptable | Acceptable, Not | [facility] | | | | | Performed | [facility] | | | | | | CORE | | | | | | LABORATORY | | + + + + + + | Specific | | 1.010, 1.015, | [facility] | | | [place], | | 1.020, 1.025 | [facility] | | | POC | | | CORE | | | | | | LABORATORY | | + + + + + + | Lot Number | [id number] | | [facility] | | | | | | [facility] | | | | | | CORE | | | | | | LABORATORY | | + + + + + + | Expiration | 2019-07-23 | | [facility] | | | Date | | | [facility] | | | | | | CORE | | | | | | LABORATORY | | + + + + + + + + | Specimen | + + | Urine | + + + + + + + | Performing | Address | City/State/Zipcode | Phone Number | | Organization | | | | + + + + + | [facility] | [address] | [place] [address] | [phone] | | [facility] | | | | | LABORATORY | | | | + + + + + Surgical Pathology Exam (03/15/2018 12:00 AM PST) + + | Specimen | + + | | + + + + + | Narrative | Performed At | + + + | SPECIMEN(S): A DUODENAL BIOPSY SPECIMEN(S): B ASCENDING COLON | [facility] | | SPECIMEN(S): C DESCENDING COLON SPECIMEN SOURCE: A. DUODENAL | [facility] | | BIOPSY B. ASCENDING COLON C. DESCENDING COLON CLINICAL HISTORY: | | | R63.4 (abnormal weight loss); R19.7 (diarrhea, unspecified); R10.9 | | | (unspecified abdominal pain) MICROSCOPIC DESCRIPTION: Histologic | | | sections of all submitted blocks are examined by light microscopy. | | | These findings, together with the gross examination, support the | | | pathologic diagnosis. FINAL PATHOLOGIC DIAGNOSIS: A. Duodenal | | | biopsy: - Benign duodenal mucosa, negative for specific diagnostic | | | abnormality. B. Ascending colon, biopsy: - Benign colonic | | | mucosa, negative for specific diagnostic abnormality. C. | | | Descending colon, biopsy: - Benign colonic mucosa, negative for | | | specific diagnostic abnormality. VR:[facility]:[email or web address] GROSS | | | DESCRIPTION: A. The specimen received in formalin and labeled as | | | "Corpus, Nicky [place]" and designated as "duodenal biopsy" per the | | | requisition, consists of four pink-taylor tissue fragments ranging in | | | size from 0.2 to 0.4 cm in diameter. The entire specimen is | | | submitted in a single cassette, (A1). B. The specimen received | | | in formalin and labeled as "Corpus, Nicky [place]" and designated as | | | "right colon biopsy" per the requisition, consists of six pink-taylor | | | tissue fragments measuring 0.3 cm in diameter each. The entire | | | specimen is submitted in a single cassette, (B1). C. The | | | specimen received in formalin and labeled as "Nicky Fine" | | | and designated as "left colon biopsy" per the requisition, consists of | | | six pink-taylor tissue fragments ranging in size from 0.3 to 0.9 cm in | | | greatest dimension. The biggest tissue fragment is bisected and the | | | entire specimen is submitted in a single cassette, (C1). js:AMB:cathy | | | PERFORMING LABORATORY: The technical component was performed by | | | [facility], [address] [place] [id number] (Medical | | | Director: Bernadette Lara MD; CLIA# [id number]). Professional | | | interpretation was performed by [facility] [place] | | | [address] | | | [address] (Electric Trucker: Edd Abraham M.D.). Diagnostician: | | | Edd Abraham MD Pathologist Electronically Signed 03/16/2018 | | | | | + + + + +---------+ + + | Performing | Address | City/State/Zipcode | Phone Number | | Organization | | | | + +---------+ + + | [facility] | | | | | [place] | | | | + +---------+ + + documented in this encounter Visit Diagnoses + + | Diagnosis | + + | Abnormal weight loss - Primary Loss of weight | + + | Chronic diarrhea Diarrhea | + + documented in this encounter Administered Medications + +--------+ +---------+------+------+ | Medication Order | MAR | Action | Dose | Rate | Site | | | Action | Date | | | | + +--------+ +---------+------+------+ | benzocaine (HURRICAINE) 20% | Given | 03/15/19 | 1 spray | | | | non-aerosol spray PRN, Starting | | 19 10:07 | | | | | 03/15/18 at 1007 | | AM PST | | | | + +--------+ +---------+------+------+ +---+---+ | | | +---+---+ + +---------+ +--------+-------+---+ | lactated ringers (LR) infusion | New Bag | 03/15/19 | 1,000 | 100 | | | at 100 mL/hr, Intravenous, | | 19 10:01 | mLs | mL/hr | | | CONTINUOUS, Starting 03/15/18 | | AM PST | | | | | at 1000, Pre-op | | | | | | + +---------+ +--------+-------+---+ +---+---+ | | | +---+---+ + +-------+ +-------+---+---+ | meperidine (DEMEROL) 100 mg/mL | Given | 03/15/19 | 25 mg | | | | injection PRN, Starting Wed | | 19 10:23 | | | | | 03/15/18 at 1009 | | AM PST | | | | + +-------+ +-------+---+---+ +-------+ +-------+---+---+ | Given | 03/15/19 | 75 mg | | | | | 19 10:09 | | | | | | AM PST | | | | +-------+ +-------+---+---+ +---+---+ | | | +---+---+ + +-------+ +------+---+---+ | midazolam (VERSED) 5 mg/mL | Given | 03/15/19 | 1 mg | | | | injection PRN, Starting Wed | | 19 10:26 | | | | | 03/15/18 at 1012 | | AM PST | | | | + +-------+ +------+---+---+ +-------+ +------+---+---+ | Given | 03/15/19 | 1 mg | | | | | 19 10:21 | | | | | | AM PST | | | | +-------+ +------+---+---+ | Given | 03/15/19 | 1 mg | | | | | 19 10:17 | | | | | | AM PST | | | | +-------+ +------+---+---+ + +---+ | | | + +---+ | ondansetron (ZOFRAN) injection | | | 4 mg 4 mg, Oral, EVERY 4 HOURS | | | PRN, Nausea, Vomiting, Starting | | | 03/15/18 at 1116, | | | Recovery/Phase I | | + +---+ | | | + +---+ documented in this encounter
--- OUTSIDE RECORDS SUMMARY | ~2019-02-06 | XMS | Encounter Summary ---
Demographics + + + | Address | [address] | | | [place] [address] | + + + | Home Phone | | + + + | Preferred Language | Unknown | + + + | Marital Status | | + + + | Faith Affiliation | 1027 | + + + | Race | Unknown | + + + | Ethnic Group | Unknown | + + + Author + + + | Author | [facility] | | | and [place] | + + + | Organization | [facility] | | | [...] Team Providers + +------+ + | Care Managing Member Name | Role | Phone | + +------+ + | Yousif Sebastian | PCP | | + +------+ + Reason for Visit + + + | Reason | Comments | + + + | Imaging Only | CT approved | + + + Encounter Details +--------+ + + + + | Date | Type | Department | Care Team | Description | +--------+ + + + + | 04/06/ | Telephone | [facility] [place] | [facility], | Imaging Only (CT | | 2019 | | GASTROENTEROLOGY | ABHIJEET Hernandez [address] | approved) | | | | [address] | [place] | | | | | [address] [place], [place] | [place], [place] | | | | | [address] | [address] | | | | | [phone] | | | +--------+ + + + [...]
--- OUTSIDE RECORDS SUMMARY | ~2019-02-06 | XMS | Encounter Summary ---
Demographics + + + | Address | [address] | | | [place] [address] | + + + | Home Phone | | + + + | Preferred Language | Unknown | + + + | Marital Status | | + + + | Episcopal Affiliation | 1027 | + + + | Race | Unknown | + + + | Ethnic Group | Unknown | + + + Author + + + | Author | [facility] | | | and [place] | + + + | Organization | [facility] | | | [...] Team Providers + +------+ + | Care Gasket Notcher Name | Role | Phone | + +------+ + PCP | Unavailable | + +------+ + Encounter Details +--------+ + + + + | Date | Type | Department | Care Team | Description | +--------+ + + + + | 01/15/ | Emergency | [facility] | Flo Horton, | [place] biswas; | | 2018 - | | MEDICAL [facility]ENTER | [place] [address] | Generalized | | | | EMERGENCY CENTER | [place], [place] | abdominal pain; | | 01/16/ | | [address] | [address] | Nausea vomiting and | | 2017 | | [place], [place] | | diarrhea; | | | | [address] | | Dehydration, mild | | | | [phone] | | | +--------+ + + + + Social History + +-------+ +--------+------+ | Tobacco Use | Types | Packs/Day | Years | Date | | | | | Used | | + +-------+ +--------+------+ | Never Assessed | | | | | + +-------+ +--------+------+ + + + | Sex Assigned at [...] | Blood Pressure | 100/66 | 01/16/2018 12:19 AM | | | | | PST | | + + + + + | Pulse | 86 | 01/16/2018 12:19 AM | | | | | PST | | + + + + + | Temperature | 36.4 C (97.6 F) | 01/16/2018 12:19 AM | | | | | PST | | + + + + + | Respiratory Rate | 17 | 01/16/2018 12:19 AM | | | | | PST | | + + + + + | Oxygen Saturation | - | - | | + + + + + | Inhaled Oxygen | - | - | | | Concentration | | | | + + + + + | Weight | 47.8 kg (105 lb 6.1 | 01/16/2018 12:19 AM | | | | oz) | PST | | + + + + + | Height | - | - | | + + + + + | Body Mass Index | - | - | | + + + + + [...] | + +--------+ + + + | URINALYSIS, REFLEX | Routin | 01/15/2018 | | Results for this | | MICROSCOPIC AND/OR | e | 9:30 PM | | procedure are in the | | CULTURE | | PST | | results section. | + +--------+ + + + | HISTORICAL LAB PANEL | Routin | 01/15/2018 | | Results for this | | RESULT | e | 9:27 PM | | procedure are in the | | | | PST | | results section. | + +--------+ + + + | HCG, SERUM, QUANT | Routin | 01/15/2018 | | Results for this | | | e | 9:27 PM | | procedure are in the | | | | PST | | results section. | + +--------+ + + + | LIPASE | Routin | 01/15/2018 | | Results for this | | | e | 9:27 PM | | procedure are in the | | | | PST | | results section. | + +--------+ + + + documented in this encounter Results Urinalysis, Reflex Microscopic and/or Culture (01/15/2018 9:30 PM PST) + + + + + + | Component | Value | Ref Range | Performed | Pathologist | | | | | At | Signature | + + + + + + | Color | YELLOW | | EXTERNAL | | | | | | LAB | | + + + + + + | Clarity | CLOUDY | | EXTERNAL | | | | | | LAB | | + + + + + + | Specific | 1.021 | 1.002 - 1.030 | EXTERNAL | | | [place] | | | LAB | | + + + + + + | Leukocyte | NEGATIVE | | EXTERNAL | | | Esterase, | | | LAB | | | Urine | | | | | + + + + + + | Nitrite, | NEGATIVE | | EXTERNAL | | | Urine | | | LAB | | + + + + + + | Urobilinoge | NORMAL | mg/dL | EXTERNAL | | | n, Urine | | | LAB | | + + + + + + | Protein, | NEGATIVE | mg/dL | EXTERNAL | | | Urine | | | LAB | | + + + + + + | pH, Urine | 6.0 | 5.0 - 8.0 | EXTERNAL | | | | | | LAB | | + + + + + + | Blood, | NEGATIVE | | EXTERNAL | | | Urine | | | LAB | | + + + + + + | Ketones | NEGATIVE | mg/dL | EXTERNAL | | | | | | LAB | | + + + + + + | Bilirubin, | NEGATIVE | | EXTERNAL | | | Urine | | | LAB | | + + + + + + | Glucose, | NEGATIVEComment: Testing | mg/dL | EXTERNAL | | | Urine | performed at [facility];[address] | | LAB | | | | [address];[place] | | | | | | [address] | | | | + + + + + + + + | Specimen | + + | | + + + +---------+ + + | Performing | Address | City/State/Zipcode | Phone Number | | Organization | | | | + +---------+ + + | EXTERNAL LAB | | | | + +---------+ + + HISTORICAL LAB PANEL RESULT (01/15/2018 9:27 PM PST) + + + + + + | Component | Value | Ref Range | Performed | Pathologist | | | | | At | Signature | + + + + + + | WBC | 4.47 | 3.80 - 11.00 | EXTERNAL | | | | | K/uL | LAB | | + + + + + + | RED CELL | 4.83 | 3.70 - 5.10 | EXTERNAL | | | COUNT | | M/uL | LAB | | + + + + + + | Hgb | 14.0 | 11.3 - 15.5 | EXTERNAL | | | | | g/dL | LAB | | + + + + + + | Hematocrit, | 41.9 | 34.0 - 46.0 % | EXTERNAL | | | POC | | | LAB | | + + + + + + | MCV | 86.7 | 80.0 - 100.0 fl | EXTERNAL | | | | | | LAB | | + + + + + + | MCH | 29.0 | 27.0 - 34.0 pg | EXTERNAL | | | | | | LAB | | + + + + + + | MCHC | 33.4 | 32.0 - 35.5 | EXTERNAL | | | | | g/dL | LAB | | + + + + + + | RDW-CV | 39.4 | 37 - 53 fl | EXTERNAL | | | | | | LAB | | + + + + + + | Platelet | 207 | 150 - 400 K/uL | EXTERNAL | | | Count | | | LAB | | | Plasma | | | | | + + + + + + | MPV | 8.1 | fl | EXTERNAL | | | | | | LAB | | + + + + + + | Differentia | AUTOMATED | | EXTERNAL | | | l Type | | | LAB | | + + + + + + | % Segmented | 69.89 | % | EXTERNAL | | | | | | LAB | | | Neutrophils | | | | | + + + + + + | % | 13.50 | % | EXTERNAL | | | Lymphocytes | | | LAB | | + + + + + + | % Monocytes | 15.22 | % | EXTERNAL | | | | | | LAB | | + + + + + + | % | 0.83 | % | EXTERNAL | | | Eosinophils | | | LAB | | + + + + + + | % Basophils | 0.56 | % | EXTERNAL | | | | | | LAB | | + + + + + + | Absolute | 3.13 | 1.90 - 7.40 | EXTERNAL | | | Segmented | | K/uL | LAB | | | Neutrophils | | | | | + + + + + + | Absolute | 0.60 (L) | 1.00 - 3.90 | EXTERNAL | | | Lymphocytes | | K/uL | LAB | | + + + + + + | Absolute | 0.68 | 0.00 - 0.80 | EXTERNAL | | | Monocytes | | K/uL | LAB | | + + + + + + | Absolute | 0.04 | 0.00 - 0.50 | EXTERNAL | | | Eosinophils | | K/uL | LAB | | + + + + + + | Absolute | 0.03 | 0.00 - 0.10 | EXTERNAL | | | Basophils | | K/uL | LAB | | + + + + + + | Na | 140 | 135 - 145 | EXTERNAL | | | | | mmol/L | LAB | | + + + + + + | K | 3.8 | 3.5 - 4.9 | EXTERNAL | | | | | mmol/L | LAB | | + + + + + + | Cl | 108 | 99 - 109 mmol/L | EXTERNAL | | | | | | LAB | | + + + + + + | CO2 | 22 (L) | 23 - 32 mmol/L | EXTERNAL | | | | | | LAB | | + + + + + + | Anion Gap | 13 | 5 - 20 mmol/L | EXTERNAL | | | | | | LAB | | + + + + + + | Glucose, | 87 | 65 - 99 mg/dL | EXTERNAL | | | Fasting | | | LAB | | + + + + + + | BUN | 12 | 8 - 25 mg/dL | EXTERNAL | | | | | | LAB | | + + + + + + | Creatinine | 0.65 | 0.50 - 1.00 | EXTERNAL | | | | | mg/dL | LAB | | + + + + + + | BUN/Creatin | 18 | | EXTERNAL | | | ine Ratio | | | LAB | | + + + + + + | Calcium | 9.1 | 8.5 - 10.5 | EXTERNAL | | | | | mg/dL | LAB | | + + + + + + | Protein, | 7.9 | 6.3 - 8.2 g/dL | EXTERNAL | | | Total | | | LAB | | + + + + + + | Albumin | 4.2 | 3.6 - 5.0 g/dL | EXTERNAL | | | | | | LAB | | + + + + + + | Globulin | 3.7 | 1.3 - 4.9 g/dL | EXTERNAL | | | | | | LAB | | + + + + + + | A/G Ratio | 1.1 | 1.0 - 2.4 | EXTERNAL | | | | | | LAB | | + + + + + + | Bilirubin | 0.3 | 0.1 - 1.5 mg/dL | EXTERNAL | | | Total | | | LAB | | + + + + + + | ALP, | 79 | 35 - 115 U/L | EXTERNAL | | | External | | | LAB | | + + + + + + | AST | 18 | 10 - 45 U/L | EXTERNAL | | | | | | LAB | | + + + + + + | ALT | 17 | 10 - 65 U/L | EXTERNAL | | | | | | LAB | | + + + + + + | Estimated | >60Comment: GFR <60: | mL/min/1.73m2 | EXTERNAL | | | GFR | CHRONIC KIDNEY DISEASE, | | LAB | | | | IF FOUND OVER A 3 MONTH | | | | | | PERIOD.GFR <15: KIDNEY | | | | | | FAILURE.FOR | | | | | | AMERICANS, MULTIPLY THE | | | | | | CALCULATED GFR BY | | | | | | 1.210.This eGFR is | | | | | | calculated using the | | | | | | MDRD IDMS traceable | | | | | | equation. | | | | + + + + + + | CK, Total | 41 | 30 - 240 U/L | EXTERNAL | | | | | | LAB | | + + + + + + | INR | 1.0Comment: REFERENCE | | EXTERNAL | | | | RANGE:0.9 - 1.2 | | LAB | | | | NON-ANTICOAGULATED2.0 | | | | | | - 3.0 ALL OTHER | | | | | | THERAPEUTIC | | | | | | INDICATIONS2.5 - 3.5 | | | | | | MECHANICAL HEART VALVES, | | | | | | RECURRENT OR SYSTEMIC | | | | | | EMBOLISM | | | | + + + + + + | aPTT, | 31 | 23 - 32 seconds | EXTERNAL | | | Patient | | | LAB | | + + + + + + | CK-MB | <1.0 | 0.5 - 3.6 ng/mL | EXTERNAL | | | | | | LAB | | + + + + + + | CK-MB Index | UNABLE TO | | EXTERNAL | | | | CALCULATEComment: | | LAB | | | | Testing performed at | | | | | | [facility];[address] [place] [address] | | | | | | Blvd;[place] [address] | | | | + + + + + + + + | Specimen | + + | | + + + +---------+ + + | Performing | Address | City/State/Zipcode | Phone Number | | Organization | | | | + +---------+ + + | EXTERNAL LAB | | | | + +---------+ + + HCG, Serum, Quant (01/15/2018 9:27 PM PST) + + + + + + | Component | Value | Ref Range | Performed | Pathologist | | | | | At | Signature | + + + + + + | hCG Quant, | <3Comment: APPROX | mIU/mL | EXTERNAL | | | Serum | GESTATIONAL AGE..APPROX | | LAB | | | | HCG RANGE 0.2 - 1 WEEK . | | | | | | . . . . 5 - 501 - 2 | | | | | | WEEKS . . . . . 50 - | | | | | | 5002 - 3 WEEKS . . . . | | | | | | 100 - [address]656 - 4 WEEKS | | | | | | . . . . 500 - 500943 - | | | | | | 5 WEEKS . . . . 1000 - | | | | | | 295082 - 6 WEEKS . . . | | | | | | [address] - [id number] - 8 | | | | | | WEEKS . . . [address] - | | | | | | 2090112 - 3 MONTHS . . . | | | | | | [address] - 933705 Testing | | | | | | performed at [facility];[address] | | | | | | [address] [facility];[place], [place] | | | | | | [address] | | | | + + + + + + + + | Specimen | + + | Blood specimen | | (specimen) | + + + +---------+ + + | Performing | Address | City/State/Zipcode | Phone Number | | Organization | | | | + +---------+ + + | EXTERNAL LAB | | | | + +---------+ + + Lipase (01/15/2018 9:27 PM PST) + + + + + + | Component | Value | Ref Range | Performed | Pathologist | | | | | At | Signature | + + + + + + | Lipase | 109Comment: Testing | 73 - 393 U/L | EXTERNAL | | | | performed at [facility] | | LAB | | | | [address];[place] | | | | | | [address] | | | | + + + + + + + + | Specimen | + + | Blood specimen | | (specimen) | + + + +---------+ + + | Performing | Address | City/State/Zipcode | Phone Number | | Organization | | | | + +---------+ + + | EXTERNAL LAB | | | | + +---------+ + + documented in this encounter Visit Diagnoses + + | Diagnosis | + + | 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
--- OUTSIDE RECORDS SUMMARY | ~2019-02-06 | XMS | Encounter Summary ---
Demographics + + + | Address | [address] | | | [place] [address] | + + + | Home Phone | | + + + | Preferred Language | Unknown | + + + | Marital Status | | + + + | Buddhist Affiliation | 1027 | + + + | Race | Unknown | + + + | Ethnic Group | Unknown | + + + Author + + + | Author | [facility] | | | and [place] | + + + | Organization | [facility] | | | [...] Team Providers + +------+ + | Care Sales Engagement Executive Name | Role | Phone | + +------+ + | Yousif Sebastian | PCP | | + +------+ + Reason for Visit + + + | Reason | Comments | + + + | Follow-up | | + + + Encounter Details +--------+---------+ + + + | Date | Type | Department | Care Team | Description | +--------+---------+ + + + | 04/12/ | Office | [facility] | [facility], | Irritable bowel | | 2019 | Visit | GASTROENTEROLOGY | ABIHJEET Hernandez [address] | syndrome with | | | | [address] | [place], [place] [address] | diarrhea (Primary | | | | [address] [place], [place] | [place], [place] | Dx); Infection due | | | | [address] | [address] | to Blastocystis | | | | [phone] | | species | +--------+---------+ + + + Social History [...] + + + | Blood Pressure | 104/60 | 04/12/2018 10:34 AM | | | | | PST | | + + + + + | Pulse | 71 | 04/12/2018 10:34 AM | | | | | PST | | + + + + + | Temperature | 37.1 C (98.8 F) | 04/12/2018 10:34 AM | | | | | PST | | + + + + + | Respiratory Rate | 12 | 04/12/2018 10:34 AM | | | | | PST | | + + + + + | Oxygen Saturation | 99% | 04/12/2018 10:34 AM | | | | | PST | | + + + + + | Inhaled Oxygen | - | - | | | Concentration | | | | + + + + + | Weight | 47.9 kg (105 lb 9.6 | 04/12/2018 10:34 AM | | | | oz) | PST | | + + + + + | Height | - | - | | + + + + + | Body Mass Index | 16.06 | 03/15/2018 9:42 AM | | | | | PST | | + + + + + documented in this encounter Patient Instructions Patient Instructions Mary Ma ARNP - 04/12/2018 10:30 AM PST Trial of rifaximin 550 mg tid for 2 weeks in addition to probiotics. If no relief in symptoms, will repeat stool studies. Eat every 2-3 hours. Do not skip meals. Electronically signed by ABHIJEET Hutton 04/12/2018 11:21 AM PST documented in this encounter Progress Notes Mary Ma ARNP - 04/12/2018 10:30 AM PSTFormatting of this note might be differe nt from the original. PATIENT NAME: Nicky Fine : 1995: AGE: 23 y.o. REFERRED BY: No additional provider found PRIMARY CARE: RYAN Sequeira Subjective: CHIEF COMPLAINT: Nicky Fine is a 23 y.o. female is here for a follow up. She is being seen today f or abdominal pain. . HISTORY OF PRESENT ILLNESS: Patient reports that she was treated for blastocytosis stool infection. After treatment, zia valdivia feels as though symptoms may have improved some. She is no longer losing weight, but has not put much back on. She continues to have abdominal pain often. Comes at least once per day. Pain is in lower a bdomen and cramping. The only thing that helps in laying in the position. She takes th e Bentyl once she has pain. She thinks this may help. MEDICAL, SURGICAL, AND PERSONAL HISTORY Allergies Allergen Reactions Sulfa Antibiotics Rash Past Medical History: Diagnosis Date Abdominal cramps Abnormal weight loss Constipation Diarrhea Intestinal malabsorption, unspecified type Low vitamin D level Nausea PONV (postoperative nausea and vomiting) Past Surgical History: Procedure Laterality Date Arm Surgery Right COLONOSCOPY N/A 03/15/2018 Procedure: COLONOSCOPY; Surgeon: Soham Sanchez MD; Location: [facility] UPPER GASTROINTESTINAL ENDOSCOPY N/A 03/15/2018 Procedure: EGD; Surgeon: Soham Sanchez MD; Location: [facility] WISDOM TOOTH EXTRACTION Family History Problem Relation Age of Onset No Known Problems Mother No Known Problems Father Social History Social History Marital status: Spouse name: N/A Number of children: N/A Years of education: N/A Occupational History Not on file. Social History Main Topics Smoking status: Never Smoker Smokeless tobacco: Never Used Alcohol use No Drug use: No Sexual activity: Not on file Other Topics Concern Not on file Social History Narrative No narrative on file Review of Systems Constitutional: Negative for chills, fever and unexpected weight change. Respiratory: Negative for cough, shortness of breath and wheezing. Cardiovascular: Negative for chest pain, palpitations and leg swelling. Gastrointestinal: Negative except as stated above Objective: Physical Exam Constitutional: She is oriented to person, place, and time. She appears well-developed and well-nourished. No distress. HENT: Head: Normocephalic and atraumatic. Eyes: No scleral icterus. Musculoskeletal: Normal range of motion. She exhibits no edema or deformity. Neurological: She is alert and oriented to person, place, and time. Skin: Skin is warm and dry. No rash noted. Psychiatric: She has a normal mood and affect. Her speech is normal and behavior is normal. Nursing note and vitals reviewed. Abstract on 03/23/2018 Component Date Value Ref Range Status Colonoscopy Impression, External 03/15/2018 Impression: Redundant colon. Tortuous colon . The entire examined colon is normal. Biopsied. The examination was otherwise normal. The d istal rectum and anal verge are normal on retroflexion view.~ [facility] Dr. Sanchez Final Admission on 03/15/2018, Discharged on 03/15/2018 Component Date Value Ref Range Status Test, Urine, POC 03/15/2018 Negative Negative Final Internal QC 03/15/2018 Acceptable Acceptable, Not Performed Final Lot Number 03/15/2018 [id number] Final Expiration Date 03/15/2018 2019-07-23 Final Clostridium Difficile GDH Antigen 03/15/2018 Negative Negative Final Negative for toxigenic Clostridium difficile C. Diff Toxin A/B EIA 03/15/2018 Negative Negative Final No data exists on the effects of colonic washes, barium enemas, laxatives, or bowel prepar ations on the performance of this test. All of these procedures can result in extensive dilu tion or the presence of additives that may affect test performance. Cryptosporidium Antigen 03/15/2018 Negative Negative Final Giardia Antigen, Stool 03/15/2018 Negative Negative Final Helicobacter pylori Ag 03/15/2018 Negative Negative Final Lactoferrin, Qual 03/15/2018 Positive* Negative Final Ova + Parasite Exam 03/15/2018 Final report* Final These results were obtained using wet preparation(s) and trichrome stained smear. This test does not include testing for Cryptosporidium parvum, Cyclospora, or Microsporidia. Shigatoxin 1 03/15/2018 Negative Negative Final Shigatoxin 2 03/15/2018 Negative Negative Final Culture 03/15/2018 No Salmonella, Shigella, Aeromonas, Plesiomonas, E. coli O157 or Mike xiang isolated. Final Culture 03/15/2018 4+ Usual Monica Final Consistent with usual enteric monica. Campylobacter AG, Qual 03/15/2018 Negative Negative Final Result 03/15/2018 Comment* Final Blastocystis hominis organisms present Few seen EGD 03/15/2018: Impression: - Normal cricopharyngeus, upper third of esophagus, middle third of esophagus and lower third of esophagus. - Z-line regular, 40 cm from the incisors. - Normal lower esophageal sphincter. - Gastroparesis. Biopsied. - Normal duodenal bulb, first portion of the duodenum, second portion of the duodenum, area of the papilla and third portion of the duodenum. - The retroflexed view confirmed previous findings, Pathology 03/15/2018: FINAL PATHOLOGIC DIAGNOSIS: A. Duodenal biopsy: - Benign duodenal mucosa, negative for specific diagnostic abnormality. B. Ascending colon, biopsy: - Benign colonic mucosa, negative for specific diagnostic abnormality. C. Descending colon, biopsy: - Benign colonic mucosa, negative for specific diagnostic abnormality. Assessment: 1. Irritable bowel syndrome with diarrhea 2. Infection due to Blastocystis species Plan: Trial of rifaximin 550 mg tid for 2 weeks in addition to probiotics. If no relief in symptoms, will repeat stool studies. Will follow up with results. Patient is to call with any question or concerns. Any fevers, chills, chest pain, SOB or other serious symptoms patient is to call the office or go to ER . Cc: RYAN Sequeira This note was dictated using voice recognition software. Please contact me if there are an y questions regarding its content. documented in this encounter Plan of Treatment Not on filedocumented as of this encounter Visit Diagnoses + + | Diagnosis | + + | Irritable bowel syndrome with diarrhea - Primary Irritable bowel syndrome | + + | Infection due to Blastocystis species | + + documented in this encounter"
--- OUTSIDE RECORDS SUMMARY | ~2019-02-06 | XMS | Encounter Summary ---
Demographics + + + | Address | [address] | | | [place] [address] | + + + | Home Phone | | + + + | Preferred Language | Unknown | + + + | Marital Status | | + + + | Christian Affiliation | 1027 | + + + | Race | Unknown | + + + | Ethnic Group | Unknown | + + + Author + + + | Author | [facility] | | | and [place] | + + + | Organization | [facility] | | | and [...] Team Providers + +------+ + | Care Returns Clerk Name | Role | Phone | + +------+ + | Yousif Sebastian | PCP | | + +------+ + Reason for Visit + + + | Reason | Comments | + + + | Imaging Only | | + + + Encounter Details +--------+ + + + + | Date | Type | Department | Care Team | Description | +--------+ + + + + | 04/06/ | Telephone | [facility] [place] | [facility], | Imaging Only | | 2019 | | GASTROENTEROLOGY | ABHIJEET Hernandez [address] | | | | | [address] | [place], [address] | | | | | [address] [place], [place] | [place], [place] | | | | | [address] | [address] | | | | | [phone] | | | +--------+ + + + [...]
--- OUTSIDE RECORDS SUMMARY | ~2019-02-06 | XMS | Clinical Summary ---
Demographics + + + | Address | [address] | | | [place] [address] | + + + | Home Phone | | + + + | Preferred Language | Unknown | + + + | Marital Status | | + + + | Mormon Affiliation | 1027 | + + + | Race | Unknown | + + + | Ethnic Group | Unknown | + + + Author + + + | Author | [facility] | | | and [place] | + + + | Organization | [facility] | | [...] Team Providers + +------+ + | Care Medical Record Consultant Name | Role | Phone | + +------+ + | Yousif Sebastian | PCP | | + +------+ + Allergies + + + +--------+ + | Active Allergy | Reactions | Severity | Noted | Comments | | | | | Date | | + + + +--------+ + | Sulfa Antibiotics | Rash | Low | | | + + + +--------+ + Medications + + + +---------+------+------+-------+ | Medication | Sig | Dispensed | Refills | Star | End | Statu | | | | | | t | Date | s | | | | | | Date | | | + + + +---------+------+------+-------+ | cholecalciferol | Take 5,000 Units by | | 0 | 11/1 | | Activ | | (CHOLECALCIFEROL) | mouth Daily. | | | 3/20 | | e | | 5000 units CAPS | | | | 18 | | | + + + +---------+------+------+-------+ | dicyclomine | Take 1 capsule by | 120 | 0 | 12/2 | | Activ | | (BENTYL) 10 mg | mouth 4 times daily | capsule | | 0/20 | | e | | capsule | (before meals and | | | 18 | | | | | nightly). | | | | | | + + + +---------+------+------+-------+ | Vit-Fe | Take 1 tablet by | | 0 | | | Activ | | Fumarate-FA | mouth Daily. | | | | | e | | ( PO) | | | | | | | + + + +---------+------+------+-------+ | amitriptyline | Take 1 tablet by | 30 | 1 | 02/1 | | Activ | | (ELAVIL) 10 mg | mouth nightly. | tablet | | 4/20 | | e | | tablet | | | | 19 | | | + + + +---------+------+------+-------+ Active Problems + + + | Problem | Noted Date | + + + | Abnormal weight loss | 01/18/2018 | + + + | Chronic diarrhea | 01/18/2018 | + + + | Intestinal malabsorption | 01/18/2018 | + + + | Lower abdominal pain | 01/18/2018 | + + + | Other fatigue | 01/18/2018 | + + + Family History + + +------+ + | Medical History | Relation | Name | Comments | + + +------+ + | No known problems | Father | | | + + +------+ + | No known problems | Mother | | | + + +------+ + + +------+--------+ + | Relation | Name | Status | Comments | + +------+--------+ + | Father | | Alive | | + +------+--------+ + | Mother | | Alive | | + +------+--------+ + Social History + +-------+ +--------+------+ | [...] recent travel history available. | + + Last Filed Vital Signs + [...] | | + + + + + Plan of Treatment + + + + + | Health Maintenance | Due Date | Last Done | Comments | + + + + + | Cervical Cancer | | | | | Screening (Pap) | 8 | | | + + + + + | Vaccine: | | 01/22/2008, 11/06/2002, | | | Dtap/Tdap/Td (7 - | 8 | 01/28/1998, Additional history | | | Td) | | exists | | + + + + + | Vaccine: Influenza | | 12/12/2016 | | | (#1) | 9 | | | + + + + + | Vaccine: HPV | Completed | 10/15/2008, 04/09/2008, | | | | | 01/22/2008 | | + + + + + Results Not on filefrom Last 3 Months Insurance +-------+--------+ +--------+-------+---------+------+ | Payer | Benefi | Subscriber | Effect | Phone | Address | Type | | | t Plan | ID | sheyla | | | | | | / | | Dates | | | | | | Group | | | | | | +-------+--------+ +--------+-------+---------+------+ | BCBS | BCBS | [id number] | | | | PPO | | | OOS | 1 | 018-Pr | | | | | | PPO | | esent | | | | +-------+--------+ +--------+-------+---------+------+ + +--------+ +--------+ + + | Guarantor Name | Accoun | Relation to | Date | Phone | Billing Address | | | t Type | Patient | of | | | | | | | | | | + +--------+ +--------+ + + | Nicky Fine | Person | Self | [birth year] | [address] | | | al/Fam | | 1994 | [phone] | [place] [address] | | | maura | | | 6 (Home) | | + +--------+ +--------+ + + Advance Directives + + + + + | Type | Date Recorded | Patient | Explanation | | | | Registered Dental Hygienist | | + + + + + | Power of | | | | | [employer] | | | | + + + + + | Advance | 03/16/2018 8:28 | | NEEDS SIGNATURE PAGE | | Directive | AM | | | + + + + +
--- OUTSIDE RECORDS SUMMARY | ~2019-02-06 | XMS | Encounter Summary ---
Demographics + + + | Address | [address] | | | [place] [address] | + + + | Home Phone | | + + + | Preferred Language | Unknown | + + + | Marital Status | | + + + | Methodist Affiliation | 1027 | + + + | Race | Unknown | + + + | Ethnic Group | Unknown | + + + Author + + + | Author | [facility] | | | and [place] | + + + | Organization | [facility] | | | [...] Team Providers + +------+ + | Care Project Manager/Design Manager Name | Role | Phone | + +------+ + | Yousif Sebastian | PCP | | + +------+ + Reason for Visit + + + | Reason | Comments | + + + | Results, Pathology | egd,colon positive for Blastocystis hominis | + + + Encounter Details +--------+ + + + + | Date | Type | Department | Care Team | Description | +--------+ + + + + | 03/22/ | Telephone | [facility] | Soham Sanchez MD | Results, Pathology | | 2019 | | GASTROENTEROLOGY | [address], [place] | (egd,colon positive | | | | [address] | [address] [place], [place] | for Blastocystis | | | | [address] [place], [place] | [address] | hominis) | | | | [address] | | | | | | [phone] | | | +--------+ + + + [...]
--- OUTSIDE RECORDS SUMMARY | ~2019-02-06 | XMS | Encounter Summary ---
Demographics + + + | Address | [address] | | | [place] [address] | + + + | Home Phone | | + + + | Preferred Language | Unknown | + + + | Marital Status | | + + + | Adventist Affiliation | 1027 | + + + | Race | Unknown | + + + | Ethnic Group | Unknown | + + + Author + + + | Author | [facility] | | | and [place] | + + + | Organization | [facility] | | | [...] Team Providers + +------+ + | Care Comfort Filler Name | Role | Phone | + [...] | | | | | | | AL | | | | | | | ESOPHAGOGAST | | | | | | | RODUODENOSCO | | | | | | | PY TRANSORAL | | | | | | | DIAGNOSTIC | | | | | | | AL EGD | | | | | | | TRANSORAL | | | | | | | BIOPSY | | | | | | | SINGLE/MULTI | | | | | | | PLE AL | | | | | | | COLONOSCOPY | | | | | | | FLX DX | | | | | | | W/COLLJ SPEC | | | | | | | WHEN PFRMD | | | | | | | AL | | | | | | | COLONOSCOPY | | | | | | | W/BIOPSY | | | | | | | SINGLE/MULTI | | | | | | | PLE AL | | | | | | | [...] Description | +--------+---------+ + + + | 03/15/ | Surgery | [facility] | Soham Sanchez MD | EGD | | 2019 | | MED CTR [facility] INTRA OP | [address], [place] | | | | | [address] | [address] [place] | | | | | [place], [place] | [address] | | | | | [address] | | | | | | [phone] | | | +--------+---------+ + + + Social History [...] | | , Qual | | | [facility] | [...] ST. | [address] | [place] | [phone] | | [facility] | | [address] | | | - LABORATORY | | [...] 01 - [facility] [address], | REFERENCE LAB | | [place], [place] [id number] Retail Sales Merchandiser Development: Juan Carlos Wolff MD, Phone: | [facility] | | [phone] | | + + + + + + + + | Performing | Address | City/State/Zipcode | Phone Number | | Organization | | | | + + + + + | REFERENCE LAB | [address] | [place] [address] | [phone] | | S[facility] COMER | [address] | | | + + + + [...] ST. | [address] | [place] | [phone] | | [facility] | | [address] | | | - LABORATORY | | [...] | | | Aeromonas, Plesiomonas, | | [facility] | | | | E. coli O157 or | | MEDICAL | | | | Yersinia isolated. | | CENTER - | | | | | | LABORATORY | | + + + + + + | Culture | 4+ Usual FloraComment: | | [facility] | | | | Consistent with usual | | [facility] | | | | enteric monica. | [...] ST. | [address] | [place] | [phone] | | [facility] | | [address] | | | - LABORATORY | | [...] | | 1 | | | [facility] | | | | | | MEDICAL | | | | | | CENTER - | | | | | | LABORATORY | | + + + + + + | Shigatoxin | Negative | Negative | [facility] | | | 2 | | | [facility] | | [...] ST. | [address] | [place], [place] | [phone] | | [facility] | | [address] | | | - LABORATORY | | [...] [address], | REFERENCE LAB | | [place], [place] [phone] Retail Sales Merchandiser Development: Juan Carlos Wolff MD, Phone: | [facility] | | [phone] | | + + + + + + + + | Performing | Address | City/State/Zipcode | Phone Number | | Organization | | | | + + + + + | REFERENCE LAB | [address] | [place] [address] | [phone] | | [facility] | [address] | | | + + + + [...] + | [facility] | [address] | [place] | [phone] | | [facility] | | [address] | | | - LABORATORY | | [...] ST. | [address] | [place] | [phone] | | [facility] | | [address] | | | - LABORATORY | | [...] ST. | [address] | [place] | [phone] | | [facility] | | [address] | | | - LABORATORY | | [...] | r pylori Ag | | | [facility] | | [address] | [place] | [phone] | | [facility] | | [address] | | | - LABORATORY | | | | + + + + + EGD (03/15/2018 9:42 AM PST) + + | Specimen | + + | | + + + + -+ | Narrative | Performed At | + + -+ | | [facility] | | GastroenterologyPatient Name: Nicky Mckeon Date: 03/15/2018 | [facility] | | 9:42 AMMRN: [id number] #: [id number] of : | | | 1995Admit Type: AmbulatoryAge: 23Room: [facility] 01Gender: | | | FemaleNote Status: FinalizedAttending MD: Soham Sanchez , | | | MDProcedure: Upper GI endoscopyIndications: | | | Diarrhea, Weight lossProviders: Soham Sanchez MD, | | | Lisa Grace RN, Hannah Arguello, | | | RN, Myah Hill, [...] the nurse | | | and the csr technician in the endoscopy suite. Mental Status [...] AMScope Out: 10:19:19 AM | | | [facility], [address] [place] [address] | | | [phone] | | | symptoms of potential delayed [...] |Scope Out: 10:19:19 AM | | | [facility], [address] [place] [address] | | | [address] | | + + -+ + +---------+ [...] FineProcedure Date: 03/15/2018 | [facility] | | 9:40 AMMRN: [id number] #: [id number] of : | | | 1995Admit Type: AmbulatoryAge: 23Room: [facility] 01Gender: | | | FemaleNote Status: FinalizedAttending [...] | | 10:21:20 AMScope Out: 10:45:[address] [facility] | | | [place], [address] [place] [address] | | | instructions were provided to [...] |Scope Out: 10:45:59 AM | | | [facility], [address] [place] [address] | | | [address] | | + + -+ + +---------+ [...] QC | Acceptable | Acceptable, Not | [facility] | | | | | Performed | [facility] | | | | | | CORE | | | | | | LABORATORY | | + + + + + + | Specific | | 1.010, 1.015, | [facility] | | | [place], | | 1.020, 1.025 | [facility] | | | POC | | | CORE | | | | | | LABORATORY | | + + + + + + | Lot Number | [id number] | | [facility] | | | | | | [facility] | | | | | | CORE | | | | | | LABORATORY | | + + + + + + | Expiration | 2019-07-23 | | [facility] | | | Date | | | [...] | + + + + + | [facility] | [address] [place] [address] NE | [place] [address] | [phone] | | [facility] | | | | | LABORATORY | [...] for | | | specific diagnostic abnormality. [facility]:C2NR GROSS | | | DESCRIPTION: A. The specimen received in formalin and labeled as | | | "Corpus, Nicky [place]" and designated as "duodenal biopsy" per the | | | requisition, consists of four pink-taylor tissue fragments ranging in | | | size from 0.2 to 0.4 cm in diameter. The entire specimen is | | | submitted in a single cassette, (A1). B. The specimen received | | | in formalin and labeled as "Corpus, Nicky [place]" and designated as | | | "right colon biopsy" per the requisition, consists of six pink-taylor | | | tissue fragments measuring 0.3 cm in diameter each. The entire | | | specimen is submitted in a single cassette, (B1). C. The | | | specimen received in formalin and labeled as "Corpus, Nicky [place]" | | | and designated as "left colon biopsy" per the requisition, consists of | | | six pink-taylor tissue fragments ranging in size from 0.3 to 0.9 cm in | | | greatest dimension. The biggest tissue fragment is bisected and the | | | entire specimen is submitted in a single cassette, (C1). [email or web address] | | | PERFORMING LABORATORY: The technical component was performed by | | | [employer], [address] [place] [address] (Medical | | | Director: Bernadette Lara MD; IA# [id number]). Professional | | | interpretation was performed by [employer], [place] | | | [facility], [address] [place] [address] | | | [address] (Burglary Investigator: Edd Abraham M.D.). Diagnostician: | | | [...] Visit Diagnoses Not on filedocumented in this encounter Administered Medications + +--------+ [...]
--- OUTSIDE RECORDS SUMMARY | ~2019-02-06 | XMS | Encounter Summary ---
Demographics + + + | Address | [address] | | | [place] [address] | + + + | Home Phone | | + + + | Preferred Language | Unknown | + + + | Marital Status | | + + + | Episcopal Affiliation | 1027 | + + + | Race | Unknown | + + + | Ethnic Group | Unknown | + + + Author + + + | Author | [facility] | | | and [place] | + + + | Organization | [facility] | | | and [...] Team Providers + +------+ + | Care De Alcoholizer Name | Role | Phone | + +------+ + | Yousif Sebastian | PCP | | + +------+ + Encounter Details +--------+ + + + + | Date | Type | Department | Care Team | Description | +--------+ + + + + | 03/03/ | Episode | [facility] | Leah Carey | | | 2017 | Changes | GASTROENTEROLOGY | M, RN | | | | | [address] [facility] | | | | | | [address] | | | | | | [address] | | | | | | [phone] | | | +--------+ + + + [...]
--- OUTSIDE RECORDS SUMMARY | ~2019-02-06 | XMS | Encounter Summary ---
Demographics + + + | Address | [address] | | | [place] [address] | + + + | Home Phone | | + + + | Preferred Language | Unknown | + + + | Marital Status | | + + + | Restorationist Affiliation | 1027 | + + + | Race | Unknown | + + + | Ethnic Group | Unknown | + + + Author + + + | Author | [facility] | | | and [place] | + + + | Organization | [facility] | | | [...] Team Providers + +------+ + | Care Production Mechanic Tin Cans Name | Role | Phone | + +------+ + | Yousif Sebastian | PCP | | + +------+ + Encounter Details +--------+ + + + + | Date | Type | Department | Care Team | Description | +--------+ + + + + | 02/09/ | Abstract | [facility] | Provider, | | | 2018 | | GASTROENTEROLOGY | MD Jerilyn [address] | | | | | [address] [facility] | Silvia Spence | | | | | [address] | [place] [address] | | | | | [address] | | | | | | [phone] | | | +--------+ + + + [...]
--- OUTSIDE RECORDS SUMMARY | ~2019-02-06 | XMS | Encounter Summary ---
Demographics + + + | Address | [address] | | | [place] [address] | + + + | Home Phone | | + + + | Preferred Language | Unknown | + + + | Marital Status | | + + + | Orthodoxy Affiliation | 1027 | + + + | Race | Unknown | + + + | Ethnic Group | Unknown | + + + Author + + + | Author | [facility] | | | and [place] | + + + | Organization | [facility] | | | [...] Team Providers + +------+ + | Care Dispatcher Street Department Name | Role | Phone | + +------+ + | Yousif Sebastian | PCP | | + +------+ + Reason for Visit + + + | Reason | Comments | + + + | Medication Prior | Xifaxan | | Authorization | | + + + Encounter Details +--------+ + + + + | Date | Type | Department | Care Team | Description | +--------+ + + + + | 04/20/ | Telephone | [facility] | [facility], | Medication Prior | | 2019 | | GASTROENTEROLOGY | ABHIJEET Hernandez [address] | Authorization | | | | [address] | [place] | (Xifaxan ) | | | | [address] [place], [place] | [place], [place] | | | | | [address] | [phone] | | | | | [phone] | | | +--------+ + + + [...]
--- NOTE | 2019-02-06 23:11 | PR ---
[facility] [address], [place] [address] Signed Progress Notes IP Datetime Report Generated by CPN: 02/06/2019 23:10 PROGRESS NOTES: [id number] Impression: Normal progression of labor; Reassuring heart rate Procedures: Artificial ROM Plan: Continue present management Informed Consent Obtain: Vaginal Delivery VITAL SIGNS: [id number] Vital Signs: Reviewed; Within Normal Limits EXAM: [id number] Dilatation: 5.0 Effacement: 100 Station: -1 Uterine Contractions: q 5-6 minutes MEMBRANES: [id number] Membrane Status: Bulging ROM Note: After confirming vertex well applied and obtaining verbal consent, AROM performed for moderate amount of clear fluid. Mother and baby tolerated well Comments: Pt seen and examined. Doing well. Ctxs increasing in intensity. FHT reassuring. Anticipate Fetus A: [id number] FHR Baseline: 120 Variability: Moderate 6-25bpm Accelerations: 15X15 Decelerations: None FHR Category: Category I Presentation: Vertex Comments on Fetus A: No evidence of metabolic acidosis Fetus B: [id number] Signing Physician: Abeba Britton DO Copies: ~ *Electronically Signed* 02/06/19 2641 ABEBA BRITTON DO PATIENT NAME: MELITA SONG PROGRESS NOTE DATE OF : [birth year] PHYSICIAN: ABEBA BRITTON DO RPT #: [id number] REPORT IS CONFIDENTIAL AND NOT TO BE RELEASED WITHOUT AUTHORIZATION
--- NOTE | 2019-02-08 08:14 | PR ---
[facility] [address] [place], [place] [address] Signed PP Progress Notes Datetime Report Generated by CPN: 02/08/2019 08:13 SUBJECTIVE: [id number] Pain: Within normal limits Nausea/Vomiting: Denies Flatus: Yes Bowel Movement: Yes Vital Signs: [id number] Vital Signs: Reviewed EXAM: [id number] Cardiovascular: Normal Respiratory: Normal Abdomen/Uterus: Normal Lochia: Normal Vulva/Perineum: Not Done Breasts: Not Done CVA Tenderness: Normal Extremities: Normal Incision: Not Applicable Progress: Normal Exam Comments: Fundus firm U-2 nontender IMPRESSION/PLAN/PROCEDURES: [id number] Impression: Normal progression Plan: Discharge Progress Notes: Pt seen and examined. Doing well. Ambulating, voiding, and tolerating full diet. Pain and lochia minimal. well. No other complaints. Desires d/c home. F/U 2 wks. Discharge education completed Signing Physician: Abeba Britton DO Copies: ~ *Electronically Signed* 02/08/19 0813 ABEBA BRITTON DO PATIENT NAME: MELITA SONG PROGRESS NOTE DATE OF : 89 PHYSICIAN: ABEBA BRITTON DO RPT #: [id number] REPORT IS CONFIDENTIAL AND NOT TO BE RELEASED WITHOUT AUTHORIZATION
== END 2019-02-08 11:45 | disposition home or self-care (01) | DRG 807 ==
LOC: FBCO 20:05 → FBC 20:41
PROVIDERS: ADMIT Obstetrics & Gynecology
PROC: 10907ZC Drainage of Amniotic Fluid, Therapeutic from Products of Conception, Via Natural or Artificial Opening (ICD-10-PCS; 2019-02-06)
PROC: 10E0XZZ Delivery of Products of Conception, External Approach (ICD-10-PCS; principal; 2019-02-07)
PROC: 0KQM0ZZ Repair Perineum Muscle, Open Approach (ICD-10-PCS; 2019-02-07)
DX: O69.81X0 Labor and delivery complicated by cord around neck, without compression, not applicable or unspecified (principal); Z37.0 Single live birth; Z3A.39 39 weeks gestation of pregnancy; O70.1 Second degree perineal laceration during delivery; O99.62 Diseases of the digestive system complicating childbirth; K58.0 Irritable bowel syndrome with diarrhea; Z88.2 Allergy status to sulfonamides; Z79.899 Other long term (current) drug therapy
CPT/HCPCS: 36415; 85027; A9270; J2590; J7121

== ENCOUNTER 2021-06-01 10:20 | Inpatient (IN) | payer BC ==
[~2021-06-01] VITALS: Ht 170.2 cm; Wt 56.7 kg
--- NOTE | 2021-06-02 12:35 | PR ---
[facility] [address] [place], [place] [address] Signed PP Progress Notes Datetime Report Generated by CPN: 06/02/2021 12:35 SUBJECTIVE: [id number] Pain: Within Normal Limits Nausea/Vomiting: Denies Flatus: Yes Bowel Movement: No Vital Signs: [id number] Vital Signs: Reviewed; Within Normal Limits Cardiovascular: Normal Respiratory: Normal Abdomen/Uterus: Normal Lochia: Normal Vulva/Perineum: Not Done Breasts: Not Done CVA Tenderness: Normal Extremities: Normal Incision: Not Applicable Progress: Normal Exam Comments: Fundus firm U-2 nontender IMPRESSION/PLAN/PROCEDURES: [id number] Impression: Normal Progression Plan: Discharge Progress Notes: Pt seen and examined. Doing well. Ambulating, voiding, and tolerating full diet. Pain and lochia minimal. well. No fevers/chills or other concerns. Desires d/c home today. s/p vasectomy for pp contraception. Reviewed d/c instructions in detail Signing Physician: Abeba Britton DO Copies: ~ *Electronically Signed* 06/02/21 5959 ABEBA BRITTON DO PATIENT NAME: MELITA SONG PROGRESS NOTE DATE OF : [birth year] PHYSICIAN: ABEBA BRITTON DO RPT #: [id number] REPORT IS CONFIDENTIAL AND NOT TO BE RELEASED WITHOUT AUTHORIZATION
== END 2021-06-02 16:40 | disposition home or self-care (01) | DRG 807 ==
LOC: FBCO 10:20 → FBC 11:50
PROVIDERS: ADMIT Obstetrics & Gynecology; ATTEND Obstetrics & Gynecology
PROC: 10E0XZZ Delivery of Products of Conception, External Approach (ICD-10-PCS; principal; 2021-06-01)
PROC: 10907ZC Drainage of Amniotic Fluid, Therapeutic from Products of Conception, Via Natural or Artificial Opening (ICD-10-PCS; 2021-06-01)
PROC: 3E0R3BZ Introduction of Anesthetic Agent into Spinal Canal, Percutaneous Approach (ICD-10-PCS; 2021-06-01)
PROC: 00HU03Z Insertion of Infusion Device into Spinal Canal, Open Approach (ICD-10-PCS; 2021-06-01)
DX: O43.123 Velamentous insertion of umbilical cord, third trimester (principal); Z37.0 Single live birth; Z3A.38 38 weeks gestation of pregnancy; Z20.822 Contact with and (suspected) exposure to COVID-19
CPT/HCPCS: 01961; 36415; 59025; 85027; 86850; 86900; 86901; A9270; C9803; G0463; J2590; J2795; J3010; J7121; U0003